=== PATIENT | male | born 1940 | race Caucasian/White ===

== ENCOUNTER 2019-05-02 14:15 | Inpatient (IN) | payer MEDICARE, OTHER ==
[~2019-05-02] VITALS: Ht 180.3 cm; Wt 93.8 kg
[2019-05-02 16:30] LABS: ABG BASE EXCESS -1.4 mmol/L (-2.0-3.0); ABG HCO3 23.8 mmol/L (22.0-26.0); ABG OXYGEN SATURATION 98.2 % (95-98); ABG PCO2 (T) 40.1 mmHg (35.0-45.0); ABG PH (T) 7.387 (7.350-7.450); ABG PO2 (T) 117.4 mmHg (83-108); FCOHb 0.3 % (0.5-1.5); FMetHb 0.2 % (0.3-1.12); FO2Hb 97.7 % (94-100); MINUTE VOLUME 6 L/min; PATIENT TEMPERATURE 35.9; PEEP 8 cm H2O; RESPIRATORY RATE 12 b/min; RESPIRATORY RATE (OBSERVED) 12 b/min; TIDAL VOLUME 500 mL; TOTAL HEMOGLOBIN 14.2 G/dl (14.0-17.9)
[2019-05-02] MEDS: normal saline 1000ml 1,000 ML IV SCH (16:32)
[2019-05-02] MEDS ORDERED: proCHLORperazine 10 MG/2 ml inj IV PRN (16:35)
[2019-05-02] MEDS ORDERED: acetaminophen 325mg tablet PO PRN (16:35)
[2019-05-02] MEDS ORDERED: CISatracurium **Bolus** 2 mg/ml inj IV PRN (16:35)
[2019-05-02] MEDS ORDERED: sodium phosphate inj. 30 MMOL in dextrose 5%-water 250 ML IV PRN (16:35)
[2019-05-02] MEDS ORDERED: Neutra Phos packet PO PRN (16:35)
[2019-05-02] MEDS ORDERED: magnesium Cl slow-release 64mg tablet PO PRN (16:35)
[2019-05-02] MEDS ORDERED: magnesium 2GM in 50ml NS 50 ML IV PRN (16:35)
[2019-05-02] MEDS ORDERED: magnesium hydroxide 30ml (MOM) UD suspension PO PRN (16:35)
[2019-05-02] MEDS ORDERED: bisacodyl 10mg suppository rectal RC PRN (16:35)
[2019-05-02] MEDS ORDERED: magnesium 4gm in 100ml NS 100 ML IV PRN (16:35)
[2019-05-02 17:37] LABS: BASOPHILS % (AUTO) 0.2 % (0-1); EOSINOPHILS % (AUTO) 0.1 % (0-6); HEMATOCRIT 40.8 % (42.0-52.0); HEMOGLOBIN 13.5 g/dl (14.0-17.9); LYMPHOCYTES # (AUTO) 1.2 X10'3 (1.1-4.8); LYMPHOCYTES % (AUTO) 12.3 % (21-51); MEAN CORPUSCULAR HEMOGLOBIN 31.7 PG (27.0-31.0); MEAN CORPUSCULAR HGB CONC 33.1 g/dL (33.0-36.5); MEAN CORPUSCULAR VOLUME 95.8 FL (78-98); MEAN PLATELET VOLUME 8.4 FL (7.4-10.4); MONOCYTES # (AUTO) 0.5 X10'3 (0-0.9); MONOCYTES % (AUTO) 4.6 % (2-12); NEUTROPHILS # (AUTO) 8.4 X10'3 (1.8-7.7); NEUTROPHILS % (AUTO) 82.8 % (42-75); PLATELET COUNT 144 X10'3 (140-440); RED BLOOD COUNT 4.26 X10'6 (4.70-6.10); RED CELL DISTRIBUTION WIDTH 15.3 % (11.5-14.5); WHITE BLOOD COUNT 10.2 X10'3 (4.5-11.0)
[2019-05-02 17:51] LABS: PARTIAL THROMBOPLASTIN TIME 30 SECONDS (22-32)
[2019-05-02 17:52] LABS: LACTIC SEPSIS 2.6 MMOL/L (0.4-2.0)
[2019-05-02 18:00] VITALS: BP 109/49
[2019-05-02 18:00] LABS: ALBUMIN 1.9 G/DL (3.4-5.0); ALBUMIN/GLOBULIN RATIO 0.6 (1.1-1.5); ALKALINE PHOSPHATASE 109 IU/L (46-116); AMYLASE 36 U/L (25-115); ANION GAP 10 (8-16); ASPARTATE AMINO TRANSFERASE 958 U/L (10-37); BILIRUBIN,TOTAL 1.3 MG/DL (0.1-1.0); BLOOD UREA NITROGEN 58 MG/DL (7-18); CHLORIDE 103 MMOL/L (99-107); CREATININE 2.32 MG/DL (0.60-1.10); GLUCOSE 142 MG/DL (70-104); LDL CHOLESTEROL 63 MG/DL (50-100); LIPASE 135 U/L (73-393); PHOSPHORUS 4.6 MG/DL (2.3-4.5); SODIUM 142 MMOL/L (135-145); TOTAL CARBON DIOXIDE 28.9 MMOL/L (24-32); TOTAL PROTEIN 5.2 G/DL (6.4-8.2); eGFR 27 ML/MIN
[2019-05-02 18:07] LABS: ALANINE AMINOTRANSFERASE 1534 U/L (12-78)
[2019-05-02] MEDS ORDERED: CISatracurium besylate inj. 100 MG in dextrose 5%-water 50ml 40 ML IV PRN (18:20)
--- NOTE | 2019-05-02 18:30 | NUR ---
Patient in room ICU 2039. I have received report from SHAWN Arriaga and had the opportunity to ask questions and assume patient care.
[2019-05-02] MEDS: docusate sod 100mg capsule PO SCH (18:35)
[2019-05-02 19:00] VITALS: BP 100/49
[2019-05-02] MEDS: mineral oil/petrolatum ophthal oint OP SCH (19:15)
[2019-05-02] MEDS: pantoprazole 40 MG vial IV SCH (19:15)
[2019-05-02] MEDS: midazolam 100mg in NS 100ml 100 ML IV PRN (19:16)
[2019-05-02] MEDS: heparin, porcine 5000 units/ml vial SQ SCH (19:16)
[2019-05-02 20:00] VITALS: BP 130/55
[2019-05-02] MEDS ORDERED: apixaban 2.5mg tablet PO SCH (20:00)
[2019-05-02] MEDS: amiodarone/D5 360MG/200ML BAG 200 ML IV SCH (20:49)
[2019-05-02] MEDS: NORepinephrine 8mg/ 250ml NS 250 ML IV SCH (20:50)
[2019-05-02 21:00] VITALS: BP 105/50
[2019-05-02 22:00] VITALS: BP 109/45
[2019-05-02 22:41] LABS: ANION GAP 12 (8-16); BLOOD UREA NITROGEN 56 MG/DL (7-18); BUN/CREATININE RATIO 27.5 (5.4-32.0); CALCIUM 8.2 MG/DL (8.5-10.1); CHLORIDE 106 MMOL/L (99-107); CREATININE 2.04 MG/DL (0.60-1.10); GLUCOSE 135 MG/DL (70-104); MAGNESIUM 1.9 MG/DL (1.5-2.4); POTASSIUM 4.1 MMOL/L (3.5-5.1); SODIUM 143 MMOL/L (135-145); TOTAL CARBON DIOXIDE 24.7 MMOL/L (24-32); eGFR 32 ML/MIN
[2019-05-02 23:00] VITALS: BP 127/52
[2019-05-03] VITALS (24 sets, daily range): BP systolic 91–146; BP diastolic 40–54
[2019-05-03] MEDS: normal saline 1000ml 1,000 ML IV SCH ×2 (00:13→15:43)
[2019-05-03] MEDS: mineral oil/petrolatum ophthal oint OP SCH ×6 (00:13→19:19)
[2019-05-03 00:56] LABS: ABG BASE EXCESS -0.8 mmol/L (-2.0-3.0); ABG HCO3 23.2 mmol/L (22.0-26.0); ABG OXYGEN SATURATION 98.8 % (95-98); ABG PCO2 (T) 30.7 mmHg (35.0-45.0); ABG PH (T) 7.479 (7.350-7.450); ABG PO2 (T) 127.3 mmHg (83-108); FCOHb 0.3 % (0.5-1.5); FMetHb 0.2 % (0.3-1.12); FO2Hb 98.3 % (94-100); MINUTE VOLUME 14 L/min; PEEP 5 cm H2O; RESPIRATORY RATE 12 b/min; RESPIRATORY RATE (OBSERVED) 25 b/min; TIDAL VOLUME 500 mL; TOTAL HEMOGLOBIN 14.2 G/dl (14.0-17.9)
[2019-05-03 01:54] LABS: ALANINE AMINOTRANSFERASE 1348 U/L (12-78); ALBUMIN 1.9 G/DL (3.4-5.0); ALBUMIN/GLOBULIN RATIO 0.6 (1.1-1.5); ALKALINE PHOSPHATASE 105 IU/L (46-116); ANION GAP 9 (8-16); ASPARTATE AMINO TRANSFERASE 659 U/L (10-37); BILIRUBIN,TOTAL 1.7 MG/DL (0.1-1.0); BLOOD UREA NITROGEN 56 MG/DL (7-18); BUN/CREATININE RATIO 28.7 (5.4-32.0); CALCIUM 8.1 MG/DL (8.5-10.1); CHLORIDE 107 MMOL/L (99-107); CKMB RELATIVE INDEX 3.3 RATIO (0-2.5); CREATINE KINASE 210 U/L (39-308); CREATININE 1.95 MG/DL (0.60-1.10); GLUCOSE 120 MG/DL (70-104); MAGNESIUM 1.9 MG/DL (1.5-2.4); PHOSPHORUS 4.6 MG/DL (2.3-4.5); SODIUM 142 MMOL/L (135-145); TOTAL CARBON DIOXIDE 26.1 MMOL/L (24-32); TOTAL PROTEIN 5.2 G/DL (6.4-8.2); TROPONIN I 0.28 NG/ML (0.0-0.05); eGFR 33 ML/MIN
[2019-05-03] MEDS: amiodarone/D5 360MG/200ML BAG 200 ML IV SCH ×3 (02:19→14:27)
[2019-05-03] MEDS: FENTANYL-0.9 % NACL/PF 100 ML IV PRN ×3 (04:55→17:53)
[2019-05-03 05:02] LABS: BASOPHILS % (AUTO) 0.2 % (0-1); EOSINOPHILS % (AUTO) 0.1 % (0-6); HEMATOCRIT 39.6 % (42.0-52.0); HEMOGLOBIN 13.2 g/dl (14.0-17.9); LYMPHOCYTES # (AUTO) 0.8 X10'3 (1.1-4.8); LYMPHOCYTES % (AUTO) 9.5 % (21-51); MEAN CORPUSCULAR HEMOGLOBIN 31.8 PG (27.0-31.0); MEAN CORPUSCULAR HGB CONC 33.4 g/dL (33.0-36.5); MEAN CORPUSCULAR VOLUME 95.2 FL (78-98); MEAN PLATELET VOLUME 8.2 FL (7.4-10.4); MONOCYTES # (AUTO) 0.4 X10'3 (0-0.9); MONOCYTES % (AUTO) 4.9 % (2-12); NEUTROPHILS # (AUTO) 7.4 X10'3 (1.8-7.7); NEUTROPHILS % (AUTO) 85.3 % (42-75); PLATELET COUNT 114 X10'3 (140-440); RED BLOOD COUNT 4.16 X10'6 (4.70-6.10); RED CELL DISTRIBUTION WIDTH 15.5 % (11.5-14.5); WHITE BLOOD COUNT 8.7 X10'3 (4.5-11.0)
[2019-05-03 05:16] LABS: ABG BASE EXCESS 0.2 mmol/L (-2.0-3.0); ABG HCO3 26.4 mmol/L (22.0-26.0); ABG OXYGEN SATURATION 97.3 % (95-98); ABG PH (T) 7.407 (7.350-7.450); ABG PO2 (T) 83.7 mmHg (83-108); FCOHb 0.3 % (0.5-1.5); FMetHb 0.1 % (0.3-1.12); FO2Hb 96.9 % (94-100); MINUTE VOLUME 7 L/min; PEEP 5 cm H2O; RESPIRATORY RATE 12 b/min; RESPIRATORY RATE (OBSERVED) 13 b/min; TIDAL VOLUME 500 mL; TOTAL HEMOGLOBIN 13.9 G/dl (14.0-17.9)
[2019-05-03 05:16] LABS: ALBUMIN 1.8 G/DL (3.4-5.0); ANION GAP 11 (8-16); BLOOD UREA NITROGEN 54 MG/DL (7-18); BUN/CREATININE RATIO 29.8 (5.4-32.0); CALCIUM 7.9 MG/DL (8.5-10.1); CHLORIDE 108 MMOL/L (99-107); CREATININE 1.81 MG/DL (0.60-1.10); GLUCOSE 115 MG/DL (70-104); MAGNESIUM 1.8 MG/DL (1.5-2.4); POTASSIUM 3.6 MMOL/L (3.5-5.1); SODIUM 144 MMOL/L (135-145); TOTAL CARBON DIOXIDE 25.1 MMOL/L (24-32); eGFR 36 ML/MIN
--- NOTE | 2019-05-03 05:57 | NUR ---
Problems reprioritized. Patient report given, questions answered & plan of care reviewed with day shift RN.
--- NOTE | 2019-05-03 06:20 | NUR ---
Patient in room ICU 2039. I have received report from SHAWN Mehta and had the opportunity to ask questions and assume patient care.
[2019-05-03] MEDS: pantoprazole 40 MG vial IV SCH (07:46)
[2019-05-03] MEDS: docusate sod 100mg capsule PO SCH ×2 (07:48→18:32)
[2019-05-03] MEDS: heparin, porcine 5000 units/ml vial SQ SCH (07:48)
[2019-05-03] MEDS: midazolam 100mg in NS 100ml 100 ML IV PRN ×3 (08:24→19:19)
[2019-05-03] MEDS ORDERED: levetiracetam inj 500 MG in normal saline 100ml IV soln 95 ML IV SCH (08:30)
--- NOTE | 2019-05-03 08:45 | NUR ---
MD Moise at bedside to assess patient. Current condition reviewed. Md notified of BIS monitor readings, concerns for inaccurate reading vs sedation problem vs seizure activity. Per MD, BIS does not appear to be reliable.
[2019-05-03 09:05] LABS: ALBUMIN 1.8 G/DL (3.4-5.0); ANION GAP 10 (8-16); BLOOD UREA NITROGEN 53 MG/DL (7-18); BUN/CREATININE RATIO 29.3 (5.4-32.0); CALCIUM 8.1 MG/DL (8.5-10.1); CHLORIDE 108 MMOL/L (99-107); CKMB RELATIVE INDEX 2.5 RATIO (0-2.5); CREATINE KINASE 330 U/L (39-308); CREATININE 1.81 MG/DL (0.60-1.10); GLUCOSE 115 MG/DL (70-104); MAGNESIUM 1.8 MG/DL (1.5-2.4); POTASSIUM 3.6 MMOL/L (3.5-5.1); SODIUM 144 MMOL/L (135-145); TOTAL CARBON DIOXIDE 25.6 MMOL/L (24-32); TROPONIN I 0.19 NG/ML (0.0-0.05); eGFR 36 ML/MIN
[2019-05-03] MEDS ORDERED: CISatracurium **Bolus** 2 mg/ml inj IV ONE (09:50)
[2019-05-03] MEDS: levoFLOXACIN-Levaquin 250mg/D5 50 ML IV SCH (09:55)
[2019-05-03] MEDS: cefepime 1GM in D5W 50mL 50 ML IV SCH (10:27)
[2019-05-03] MEDS ORDERED: RIVA20TA PO (12:04)
[2019-05-03] MEDS ORDERED: AMIO200T61 PO (12:04)
[2019-05-03] MEDS ORDERED: FURO20TA4 PO (12:04)
[2019-05-03] MEDS ORDERED: FLUT1BLS3 PO (12:04)
[2019-05-03] MEDS ORDERED: FLO0.4C PO (12:04)
[2019-05-03] MEDS ORDERED: DILT30TA5 PO (12:04)
[2019-05-03] MEDS ORDERED: METO-384 PO (12:04)
[2019-05-03] MEDS ORDERED: METF-438 PO (12:04)
--- NOTE | 2019-05-03 14:29 | NUR ---
Initial assessment (05/03): Pt was previously admitted to [facility] with acute CHF, pleural effusion in the left side, that required chest tube placement, and later developed right pleural effusion noted per MD. Pt is admitted to the unit with coded, GORGE and acute respiratory failure. According to physical hx, pt has a medical hx of Afib, CHF, CKD stage III, DM2, CVA, COPD, and smoker. Pt is sedated and intubated. On hypothermic protocol. RD noted Cristian 10, skin intact. As the critical condition, pt remains NPO. If prolongs intubation, will rec. EN. Will continue to monitor. Recommendations: 1.TF recs Vital High Protein at goal rate 80ml/hr;to provide 1920ml fluid, 1920kcal, 1613ml free water, 168g protein. Additional water flushes 200ml q4. 2.weekly wt 3.Bowel care routine 4.Rec. phos binder per MD due to elevated phos level Addendum: 05/03/19 at [address] Amended: Links added. Addendum: 05/03/19 at [address] RD agree with manager of internal audit note
[2019-05-03 14:50] LABS: ALBUMIN 1.6 G/DL (3.4-5.0); ANION GAP 9 (8-16); BLOOD UREA NITROGEN 51 MG/DL (7-18); BUN/CREATININE RATIO 31.5 (5.4-32.0); CALCIUM 8.1 MG/DL (8.5-10.1); CHLORIDE 107 MMOL/L (99-107); CREATININE 1.62 MG/DL (0.60-1.10); GLUCOSE 130 MG/DL (70-104); MAGNESIUM 1.8 MG/DL (1.5-2.4); PHOSPHORUS 3.3 MG/DL (2.3-4.5); POTASSIUM 3.2 MMOL/L (3.5-5.1); SODIUM 143 MMOL/L (135-145); TOTAL CARBON DIOXIDE 26.8 MMOL/L (24-32); eGFR 41 ML/MIN
[2019-05-03] MEDS: NORepinephrine 8mg/ 250ml NS 250 ML IV SCH (15:44)
--- NOTE | 2019-05-03 18:18 | NUR ---
Problems reprioritized. Patient report given, questions answered & plan of care reviewed with Janine Greer RN.
[2019-05-03] MEDS: mineral oil/petrolatum ophthal oint EACHEYE SCH ×2 (18:32→18:33)
[2019-05-03] MEDS: lactobacillus rhamnosus 10,000 MMU CELLS/CAPSULE PO SCH (18:33)
--- NOTE | 2019-05-03 18:34 | NUR ---
Patient in room ICU 2039. I have received report from SHAWN Arriaga and had the opportunity to ask questions and assume patient care.
[2019-05-03 18:44] LABS: CKMB RELATIVE INDEX 2.8 RATIO (0-2.5); TROPONIN I 0.11 NG/ML (0.0-0.05)
[2019-05-03] MEDS: furosemide 40mg/4ml inj IV SCH (19:18)
[2019-05-03 21:10] LABS: CLARITY,URINE CLEAR (Clear); COLOR,URINE YELLOW (Yellow); GLUCOSE, URINE NEGATIVE (Neg); KETONES,URINE NEGATIVE (Neg); LEUKOCYTE ESTERASE ,URINE TRACE (Neg); NITRITES, URINE NEGATIVE (Neg); OCCULT BLOOD,URINE MODERATE (Neg); PROTEIN,URINE NEGATIVE (Neg)
[2019-05-03 21:12] LABS: UA COLLECTION TYPE NON-SPECIFIED
[2019-05-03 21:16] LABS: BACTERIA,URINE NONE SEEN /HPF (Neg); MUCUS STRANDS NONE SEEN /LPF (Neg); SQUAMOUS EPITHELIAL CELL,UR FEW /LPF (FEW); WBC,URINE 0-4 /HPF (0-4)
[2019-05-03 21:24] LABS: ALBUMIN 1.7 G/DL (3.4-5.0); ANION GAP 10 (8-16); BLOOD UREA NITROGEN 47 MG/DL (7-18); BUN/CREATININE RATIO 28.7 (5.4-32.0); CALCIUM 8.1 MG/DL (8.5-10.1); CHLORIDE 110 MMOL/L (99-107); CREATININE 1.64 MG/DL (0.60-1.10); GLUCOSE 119 MG/DL (70-104); MAGNESIUM 1.7 MG/DL (1.5-2.4); PHOSPHORUS 3.5 MG/DL (2.3-4.5); POTASSIUM 3.5 MMOL/L (3.5-5.1); SODIUM 146 MMOL/L (135-145); TOTAL CARBON DIOXIDE 26.4 MMOL/L (24-32); eGFR 41 ML/MIN
[2019-05-03 23:20] LABS: ABG BASE EXCESS 1.4 mmol/L (-2.0-3.0); ABG HCO3 24.8 mmol/L (22.0-26.0); ABG OXYGEN SATURATION 98.2 % (95-98); ABG PH (T) 7.467 (7.350-7.450); ABG PO2 (T) 128.1 mmHg (83-108); FCOHb 0.3 % (0.5-1.5); FMetHb 0.2 % (0.3-1.12); FO2Hb 97.7 % (94-100); MINUTE VOLUME 8 L/min; PATIENT TEMPERATURE 36.8; PEEP 5 cm H2O; RESPIRATORY RATE 12 b/min; RESPIRATORY RATE (OBSERVED) 15 b/min; TIDAL VOLUME 500 mL; TOTAL HEMOGLOBIN 13.7 G/dl (14.0-17.9)
[2019-05-04] VITALS (24 sets, daily range): BP systolic 100–135; BP diastolic 42–55
[2019-05-04] MEDS: mineral oil/petrolatum ophthal oint OP SCH ×3 (00:07→08:00)
[2019-05-04] MEDS: FENTANYL-0.9 % NACL/PF 100 ML IV PRN ×2 (01:13→17:59)
[2019-05-04 03:42] LABS: BASOPHILS % (AUTO) 0.2 % (0-1); EOSINOPHILS % (AUTO) 0.4 % (0-6); HEMATOCRIT 39.9 % (42.0-52.0); HEMOGLOBIN 13.2 g/dl (14.0-17.9); LYMPHOCYTES # (AUTO) 0.6 X10'3 (1.1-4.8); LYMPHOCYTES % (AUTO) 9.8 % (21-51); MEAN CORPUSCULAR HEMOGLOBIN 31.8 PG (27.0-31.0); MEAN CORPUSCULAR VOLUME 96.3 FL (78-98); MEAN PLATELET VOLUME 8.4 FL (7.4-10.4); MONOCYTES # (AUTO) 0.3 X10'3 (0-0.9); MONOCYTES % (AUTO) 4.4 % (2-12); NEUTROPHILS # (AUTO) 5.5 X10'3 (1.8-7.7); NEUTROPHILS % (AUTO) 85.2 % (42-75); PLATELET COUNT 106 X10'3 (140-440); RED BLOOD COUNT 4.14 X10'6 (4.70-6.10); RED CELL DISTRIBUTION WIDTH 15.5 % (11.5-14.5); WHITE BLOOD COUNT 6.5 X10'3 (4.5-11.0)
[2019-05-04 04:06] LABS: ABG BASE EXCESS 2.5 mmol/L (-2.0-3.0); ABG OXYGEN SATURATION 97.2 % (95-98); ABG PCO2 (T) 32.3 mmHg (35.0-45.0); ABG PH (T) 7.506 (7.350-7.450); ABG PO2 (T) 89.6 mmHg (83-108); FCOHb 0.6 % (0.5-1.5); FMetHb 0.2 % (0.3-1.12); FO2Hb 96.4 % (94-100); MINUTE VOLUME 13 L/min; PATIENT TEMPERATURE 36.8; PEEP 5 cm H2O; RESPIRATORY RATE 10 b/min; RESPIRATORY RATE (OBSERVED) 24 b/min; TIDAL VOLUME 500 mL; TOTAL HEMOGLOBIN 14.1 G/dl (14.0-17.9)
[2019-05-04 04:16] LABS: ALANINE AMINOTRANSFERASE 915 U/L (12-78); ALBUMIN 1.7 G/DL (3.4-5.0); ALBUMIN/GLOBULIN RATIO 0.5 (1.1-1.5); ALKALINE PHOSPHATASE 96 IU/L (46-116); ANION GAP 11 (8-16); ASPARTATE AMINO TRANSFERASE 309 U/L (10-37); BILIRUBIN,TOTAL 1.6 MG/DL (0.1-1.0); BLOOD UREA NITROGEN 45 MG/DL (7-18); BUN/CREATININE RATIO 29.4 (5.4-32.0); CALCIUM 8.2 MG/DL (8.5-10.1); CHLORIDE 110 MMOL/L (99-107); CKMB RELATIVE INDEX 3.6 RATIO (0-2.5); CREATINE KINASE 265 U/L (39-308); CREATININE 1.53 MG/DL (0.60-1.10); GLUCOSE 114 MG/DL (70-104); MAGNESIUM 1.7 MG/DL (1.5-2.4); PHOSPHORUS 3.5 MG/DL (2.3-4.5); POTASSIUM 3.4 MMOL/L (3.5-5.1); SODIUM 148 MMOL/L (135-145); TOTAL CARBON DIOXIDE 26.6 MMOL/L (24-32); TOTAL PROTEIN 4.9 G/DL (6.4-8.2); TROPONIN I 0.14 NG/ML (0.0-0.05); eGFR 44 ML/MIN
[2019-05-04] MEDS: midazolam 100mg in NS 100ml 100 ML IV PRN ×2 (05:50→17:59)
--- NOTE | 2019-05-04 06:50 | NUR ---
Problems reprioritized. Patient report given, questions answered & plan of care reviewed with SHAWN Johnson.
[2019-05-04] MEDS: docusate sod 100mg capsule PO SCH ×2 (08:00→20:00)
[2019-05-04] MEDS: lactobacillus rhamnosus 10,000 MMU CELLS/CAPSULE PO SCH ×2 (08:00→20:00)
[2019-05-04] MEDS ORDERED: enoxaparin 100mg/ml syringe SUBCUT SCH (08:00)
[2019-05-04 08:58] LABS: ALBUMIN 1.7 G/DL (3.4-5.0); ANION GAP 10 (8-16); BLOOD UREA NITROGEN 47 MG/DL (7-18); BUN/CREATININE RATIO 30.3 (5.4-32.0); CHLORIDE 112 MMOL/L (99-107); CREATINE KINASE 200 U/L (39-308); CREATININE 1.55 MG/DL (0.60-1.10); GLUCOSE 116 MG/DL (70-104); MAGNESIUM 1.6 MG/DL (1.5-2.4); PHOSPHORUS 3.4 MG/DL (2.3-4.5); POTASSIUM 3.5 MMOL/L (3.5-5.1); SODIUM 148 MMOL/L (135-145); TOTAL CARBON DIOXIDE 25.6 MMOL/L (24-32); TROPONIN I 0.15 NG/ML (0.0-0.05); eGFR 43 ML/MIN
[2019-05-04] MEDS: levoFLOXACIN-Levaquin 250mg/D5 50 ML IV SCH (09:36)
[2019-05-04] MEDS: cefepime 1GM in D5W 50mL 50 ML IV SCH (09:36)
[2019-05-04] MEDS: furosemide 40mg/4ml inj IV SCH ×2 (09:37→21:02)
[2019-05-04] MEDS: pantoprazole 40 MG vial IV SCH (09:37)
[2019-05-04] MEDS: mineral oil/petrolatum ophthal oint EACHEYE SCH ×3 (09:38→21:09)
[2019-05-04 11:41] LABS: ABG BASE EXCESS -0.5 mmol/L (-2.0-3.0); ABG OXYGEN SATURATION 95.7 % (95-98); ABG PCO2 (T) 29.6 mmHg (35.0-45.0); ABG PH (T) 7.487 (7.350-7.450); ABG PO2 (T) 75.8 mmHg (83-108); FCOHb 0.5 % (0.5-1.5); FMetHb 0.2 % (0.3-1.12); MINUTE VOLUME 10 L/min; PATIENT TEMPERATURE 36.5; PEEP 5 cm H2O; RESPIRATORY RATE 10 b/min; TIDAL VOLUME 500 mL; TOTAL HEMOGLOBIN 13.8 G/dl (14.0-17.9)
[2019-05-04 15:07] LABS: ALBUMIN 1.7 G/DL (3.4-5.0); ANION GAP 11 (8-16); BLOOD UREA NITROGEN 45 MG/DL (7-18); BUN/CREATININE RATIO 29.4 (5.4-32.0); CHLORIDE 110 MMOL/L (99-107); CREATININE 1.53 MG/DL (0.60-1.10); GLUCOSE 123 MG/DL (70-104); MAGNESIUM 1.5 MG/DL (1.5-2.4); POTASSIUM 3.4 MMOL/L (3.5-5.1); SODIUM 146 MMOL/L (135-145); TOTAL CARBON DIOXIDE 25.1 MMOL/L (24-32); eGFR 44 ML/MIN
[2019-05-04 16:20] LABS: ABG BASE EXCESS 2.5 mmol/L (-2.0-3.0); ABG HCO3 22.7 mmol/L (22.0-26.0); ABG OXYGEN SATURATION 96.5 % (95-98); ABG PCO2 (T) 24.1 mmHg (35.0-45.0); ABG PH (T) 7.592 (7.350-7.450); ABG PO2 (T) 78.2 mmHg (83-108); FCOHb 0.2 % (0.5-1.5); FMetHb 0.3 % (0.3-1.12); MINUTE VOLUME 8 L/min; PATIENT TEMPERATURE 36.8; PEEP 5 cm H2O; RESPIRATORY RATE 10 b/min; TIDAL VOLUME 500 mL; TOTAL HEMOGLOBIN 13.6 G/dl (14.0-17.9)
[2019-05-04] MEDS ORDERED: CISatracurium **Bolus** 2 mg/ml inj IV ONE (16:45)
--- NOTE | 2019-05-04 18:28 | NUR ---
Problems reprioritized. Patient report given, questions answered & plan of care reviewed with Natali ESCOBAR.
[2019-05-04] MEDS: albuterol 2.5 MG/3 ML nebule NEB SCH (19:14)
[2019-05-04] MEDS: budesonide 0.5mg/2ml UD nebule IH SCH (19:14)
[2019-05-04] MEDS: potassium Cl 20mEq/100mL bag 100 ML IV PRN ×4 (19:37→23:21)
--- NOTE | 2019-05-04 19:39 | NUR ---
balbir lechuga sent home w/daughter.
[2019-05-04] MEDS ORDERED: FLU VACC QS 2019-20 (6 MOS UP) 60 MCG/0.5 ML VIAL IMVAC ONE (20:00)
--- NOTE | 2019-05-04 21:00 | NUR ---
Unable to weight patient. Bed scale reads incorrectly without a weight history, reading -35Kg. Unable to weight patient.
[2019-05-04] MEDS: NORepinephrine 8mg/ 250ml NS 250 ML IV SCH (21:11)
[2019-05-04 22:40] LABS: ABG BASE EXCESS -0.6 mmol/L (-2.0-3.0); ABG HCO3 23.1 mmol/L (22.0-26.0); ABG OXYGEN SATURATION 96.8 % (95-98); ABG PCO2 (T) 34.6 mmHg (35.0-45.0); ABG PH (T) 7.441 (7.350-7.450); FCOHb 0.5 % (0.5-1.5); FMetHb 0.2 % (0.3-1.12); FO2Hb 96.1 % (94-100); MINUTE VOLUME 14 L/min; PATIENT TEMPERATURE 36.6; PEEP 5 cm H2O; RESPIRATORY RATE 12 b/min; RESPIRATORY RATE (OBSERVED) 26 b/min; TIDAL VOLUME 500 mL; TOTAL HEMOGLOBIN 13.5 G/dl (14.0-17.9)
[2019-05-05] VITALS (32 sets, daily range): BP systolic 96–147; BP diastolic 39–57
[2019-05-05] MEDS: FENTANYL-0.9 % NACL/PF 100 ML IV PRN ×3 (00:11→12:38)
[2019-05-05] MEDS: mineral oil/petrolatum ophthal oint EACHEYE SCH ×4 (02:00→20:29)
[2019-05-05 02:27] LABS: BASOPHILS % (AUTO) 0.1 % (0-1); EOSINOPHILS % (AUTO) 0.2 % (0-6); HEMATOCRIT 37.3 % (42.0-52.0); HEMOGLOBIN 12.7 g/dl (14.0-17.9); LYMPHOCYTES # (AUTO) 0.8 X10'3 (1.1-4.8); LYMPHOCYTES % (AUTO) 9.8 % (21-51); MEAN CORPUSCULAR HEMOGLOBIN 32.2 PG (27.0-31.0); MEAN CORPUSCULAR HGB CONC 33.9 g/dL (33.0-36.5); MEAN PLATELET VOLUME 8.2 FL (7.4-10.4); MONOCYTES # (AUTO) 0.5 X10'3 (0-0.9); MONOCYTES % (AUTO) 6.7 % (2-12); NEUTROPHILS # (AUTO) 6.8 X10'3 (1.8-7.7); NEUTROPHILS % (AUTO) 83.2 % (42-75); PLATELET COUNT 111 X10'3 (140-440); RED BLOOD COUNT 3.93 X10'6 (4.70-6.10); RED CELL DISTRIBUTION WIDTH 15.8 % (11.5-14.5); WHITE BLOOD COUNT 8.2 X10'3 (4.5-11.0)
[2019-05-05 02:40] LABS: ALANINE AMINOTRANSFERASE 665 U/L (12-78); ALBUMIN 1.7 G/DL (3.4-5.0); ALBUMIN/GLOBULIN RATIO 0.5 (1.1-1.5); ALKALINE PHOSPHATASE 91 IU/L (46-116); ANION GAP 12 (8-16); ASPARTATE AMINO TRANSFERASE 179 U/L (10-37); BILIRUBIN,TOTAL 1.5 MG/DL (0.1-1.0); BLOOD UREA NITROGEN 44 MG/DL (7-18); BUN/CREATININE RATIO 27.5 (5.4-32.0); CALCIUM 8.2 MG/DL (8.5-10.1); CHLORIDE 111 MMOL/L (99-107); GLUCOSE 139 MG/DL (70-104); MAGNESIUM 1.5 MG/DL (1.5-2.4); PHOSPHORUS 2.9 MG/DL (2.3-4.5); POTASSIUM 4.1 MMOL/L (3.5-5.1); SODIUM 147 MMOL/L (135-145); TOTAL CARBON DIOXIDE 24.3 MMOL/L (24-32); eGFR 42 ML/MIN
[2019-05-05 03:30] LABS: ABG BASE EXCESS 2.5 mmol/L (-2.0-3.0); ABG HCO3 26.4 mmol/L (22.0-26.0); ABG OXYGEN SATURATION 95.8 % (95-98); ABG PCO2 (T) 37.7 mmHg (35.0-45.0); ABG PH (T) 7.462 (7.350-7.450); ABG PO2 (T) 83.7 mmHg (83-108); FMetHb 0.1 % (0.3-1.12); FO2Hb 95.7 % (94-100); MINUTE VOLUME 7 L/min; PATIENT TEMPERATURE 36.8; PEEP 5 cm H2O; RESPIRATORY RATE 12 b/min; RESPIRATORY RATE (OBSERVED) 12 b/min; TIDAL VOLUME 500 mL; TOTAL HEMOGLOBIN 12.9 G/dl (14.0-17.9)
[2019-05-05] MEDS: midazolam 100mg in NS 100ml 100 ML IV PRN ×2 (06:21→18:14)
--- NOTE | 2019-05-05 06:27 | NUR ---
Problems reprioritized. Patient report given, questions answered & plan of care reviewed with Alex ESCOBAR.
[2019-05-05] MEDS: budesonide 0.5mg/2ml UD nebule IH SCH ×2 (07:17→19:03)
[2019-05-05] MEDS: albuterol 2.5 MG/3 ML nebule NEB SCH ×4 (07:17→19:03)
[2019-05-05] MEDS: amiodarone 200mg tablet PO SCH (08:00)
[2019-05-05] MEDS: lactobacillus rhamnosus 10,000 MMU CELLS/CAPSULE PO SCH ×2 (08:00→20:29)
[2019-05-05] MEDS: docusate sod 100mg capsule PO SCH ×2 (08:00→20:00)
[2019-05-05] MEDS: cefepime 1GM in D5W 50mL 50 ML IV SCH (08:02)
[2019-05-05] MEDS: levoFLOXACIN-Levaquin 250mg/D5 50 ML IV SCH (08:02)
[2019-05-05] MEDS: pantoprazole 40 MG vial IV SCH (08:03)
[2019-05-05] MEDS: furosemide 40mg/4ml inj IV SCH ×2 (08:03→20:29)
[2019-05-05] MEDS: enoxaparin 30mg/0.3ml syringe SUBCUT SCH (08:03)
[2019-05-05] MEDS: enoxaparin 80mg/0.8ml syringe SUBCUT SCH (08:03)
[2019-05-05 09:45] LABS: ABG BASE EXCESS 2.4 mmol/L (-2.0-3.0); ABG HCO3 26.9 mmol/L (22.0-26.0); ABG OXYGEN SATURATION 95.1 % (95-98); ABG PCO2 (T) 40.9 mmHg (35.0-45.0); ABG PH (T) 7.434 (7.350-7.450); FCOHb 0.3 % (0.5-1.5); FMetHb 0.3 % (0.3-1.12); FO2Hb 94.5 % (94-100); MINUTE VOLUME 7 L/min; PATIENT TEMPERATURE 36.8; PEEP 5 cm H2O; RESPIRATORY RATE 12 b/min; RESPIRATORY RATE (OBSERVED) 12 b/min; TIDAL VOLUME 500 mL; TOTAL HEMOGLOBIN 12.8 G/dl (14.0-17.9)
--- NOTE | 2019-05-05 12:22 | NUR ---
TF consult (05/05): Pt is overbreathing through the ventilator per bedside RN. EEG showed severe generalized dysfunction. Pt is rewarmed, per MD wants to start TF today. TF recs.below with Vital High Protein at goal rate of 80ml/hr. Will continue to monitor. Recommendations: 1.Continuous TF using Vital High Protein at goal rate 80ml/hr;to provide 1920ml fluid,1920kcal, 1613ml free water, 168g protein. 2.Additional water flushes 200ml Q4H due to elevated Na level. 3.daily wt;prealbumin qM/Th 4.Bowel care routine Addendum: 05/05/19 at [address] Amended: Links added. Addendum: 05/05/19 at [address] I have reviewed and agree with note by Buttonhole Facer. Saranya Stephen RD
--- NOTE | 2019-05-05 14:46 | NUR ---
Tube feeding started
[2019-05-05 16:35] LABS: ABG HCO3 26.4 mmol/L (22.0-26.0); ABG OXYGEN SATURATION 95.9 % (95-98); ABG PCO2 (T) 35.4 mmHg (35.0-45.0); ABG PH (T) 7.488 (7.350-7.450); ABG PO2 (T) 79.4 mmHg (83-108); FCOHb 0.2 % (0.5-1.5); FMetHb 0.1 % (0.3-1.12); FO2Hb 95.6 % (94-100); MINUTE VOLUME 8 L/min; PATIENT TEMPERATURE 36.5; PEEP 5 cm H2O; RESPIRATORY RATE 12 b/min; TIDAL VOLUME 500 mL; TOTAL HEMOGLOBIN 12.8 G/dl (14.0-17.9)
--- NOTE | 2019-05-05 18:30 | NUR ---
Patient in room ICU 2039. I have received report from Alex ESCOBAR and had the opportunity to ask questions and assume patient care. Pt orally intubated #8.0 ETT @ 23cm gum. ETT secure with anchorfast. PT is on ventilator AC/VC mode FIO2 25% TV 500 Rate 12 +5 PEEP, observed TV 626. Left upper lateral chest tube is secure & connected to Pleur-Evac drainage system with 20cm suction. Chest tube drains serous fluid. Rhythm is AFib HR 118-120. Right IJ quad lumen central line is transduced to CVP. Levophed infusing at 6mcg/min. Right femoral arterial line is sutured in place with occlusive dressing, no bleeding/hematoma. Pedal pulses with Doppler only. Capillary refill is brisk to all nail beds.Pt is on Arctic Sun in normothermia mode with core temp 36.7. OGT is taped securely to ETT @ 61cm gum line. Enteric feedings of Vital HP running at 20ml/hr. HOB is elevated 30 degrees. Safety precautions present. Bilateral soft wrist restraints secure. No distress at shift change.
--- NOTE | 2019-05-05 20:17 | NUR ---
I have reviewed and agree with all medications administered and interventions performed by GROUND SUPPORT EQUIPMENT ASSEMBLER Student Navdeep Watson.
--- NOTE | 2019-05-05 21:00 | NUR ---
Bed scale not weighing correctly. No weight history, scale reads -35kg. Unable to weigh pt.
[2019-05-06] VITALS (28 sets, daily range): BP systolic 100–144; BP diastolic 42–62
[2019-05-06] MEDS: mineral oil/petrolatum ophthal oint EACHEYE SCH ×4 (01:38→20:45)
[2019-05-06 02:23] LABS: BASOPHILS % (AUTO) 0.3 % (0-1); EOSINOPHILS % (AUTO) 0.5 % (0-6); HEMATOCRIT 33.6 % (42.0-52.0); HEMOGLOBIN 11.2 g/dl (14.0-17.9); LYMPHOCYTES # (AUTO) 0.9 X10'3 (1.1-4.8); LYMPHOCYTES % (AUTO) 11.9 % (21-51); MEAN CORPUSCULAR HEMOGLOBIN 32.2 PG (27.0-31.0); MEAN CORPUSCULAR HGB CONC 33.3 g/dL (33.0-36.5); MEAN CORPUSCULAR VOLUME 96.7 FL (78-98); MEAN PLATELET VOLUME 7.8 FL (7.4-10.4); MONOCYTES # (AUTO) 0.6 X10'3 (0-0.9); MONOCYTES % (AUTO) 7.9 % (2-12); NEUTROPHILS # (AUTO) 5.8 X10'3 (1.8-7.7); NEUTROPHILS % (AUTO) 79.4 % (42-75); PLATELET COUNT 90 X10'3 (140-440); RED BLOOD COUNT 3.47 X10'6 (4.70-6.10); RED CELL DISTRIBUTION WIDTH 15.9 % (11.5-14.5); WHITE BLOOD COUNT 7.3 X10'3 (4.5-11.0)
[2019-05-06 03:00] LABS: ALANINE AMINOTRANSFERASE 440 U/L (12-78); ALBUMIN 1.6 G/DL (3.4-5.0); ALBUMIN/GLOBULIN RATIO 0.5 (1.1-1.5); ALKALINE PHOSPHATASE 80 IU/L (46-116); ANION GAP 4 (8-16); ASPARTATE AMINO TRANSFERASE 90 U/L (10-37); BILIRUBIN,TOTAL 1.1 MG/DL (0.1-1.0); BLOOD UREA NITROGEN 37 MG/DL (7-18); BUN/CREATININE RATIO 23.9 (5.4-32.0); CALCIUM 7.8 MG/DL (8.5-10.1); CHLORIDE 112 MMOL/L (99-107); CREATININE 1.55 MG/DL (0.60-1.10); GLUCOSE 181 MG/DL (70-104); MAGNESIUM 1.5 MG/DL (1.5-2.4); POTASSIUM 3.6 MMOL/L (3.5-5.1); SODIUM 146 MMOL/L (135-145); TOTAL CARBON DIOXIDE 30.2 MMOL/L (24-32); TOTAL PROTEIN 4.6 G/DL (6.4-8.2); eGFR 43 ML/MIN
[2019-05-06 03:06] LABS: ABG BASE EXCESS 4.4 mmol/L (-2.0-3.0); ABG HCO3 28.7 mmol/L (22.0-26.0); ABG PCO2 (T) 41.4 mmHg (35.0-45.0); ABG PH (T) 7.459 (7.350-7.450); ABG PO2 (T) 73.9 mmHg (83-108); FCOHb 0.4 % (0.5-1.5); FMetHb 0.2 % (0.3-1.12); FO2Hb 94.4 % (94-100); MINUTE VOLUME 7 L/min; PATIENT TEMPERATURE 36.7; PEEP 5 cm H2O; RESPIRATORY RATE 12 b/min; RESPIRATORY RATE (OBSERVED) 12 b/min; TIDAL VOLUME 500 mL; TOTAL HEMOGLOBIN 12.1 G/dl (14.0-17.9)
--- NOTE | 2019-05-06 05:00 | NUR ---
CHG bath rendered. Linen & gown changed. EKG electrode patches changed. Left ear lobe noted with dark area when pulse oximeter probe changed. Arms weep clear fluid. Left lower extremity with open area, tissue is red & weeping clear fluid. Right lower extremity with open weeping area, clear fluid.Foam dressing changed to sacrum surrounding area is reddened.
--- NOTE | 2019-05-06 06:21 | NUR ---
Problems reprioritized. Patient report given, questions answered & plan of care reviewed with Alex ESCOBAR.
--- NOTE | 2019-05-06 06:30 | NUR ---
Patient in room ICU 2039. I have received report from Natali ESCOBAR and had the opportunity to ask questions and assume patient care.
[2019-05-06] MEDS: albuterol 2.5 MG/3 ML nebule NEB SCH ×4 (08:00→19:22)
[2019-05-06] MEDS: budesonide 0.5mg/2ml UD nebule IH SCH ×2 (08:00→19:22)
[2019-05-06] MEDS: docusate sod 100mg capsule PO SCH ×2 (08:00→20:00)
[2019-05-06] MEDS: lactobacillus rhamnosus 10,000 MMU CELLS/CAPSULE PO SCH ×2 (08:06→20:55)
[2019-05-06] MEDS: cefepime 1GM in D5W 50mL 50 ML IV SCH (08:07)
[2019-05-06] MEDS: amiodarone 200mg tablet PO SCH (08:07)
[2019-05-06] MEDS: furosemide 40mg/4ml inj IV SCH ×2 (08:07→20:55)
[2019-05-06] MEDS: levoFLOXACIN-Levaquin 250mg/D5 50 ML IV SCH (08:07)
[2019-05-06] MEDS: pantoprazole 40 MG vial IV SCH (08:07)
[2019-05-06] MEDS: enoxaparin 30mg/0.3ml syringe SUBCUT SCH (08:08)
[2019-05-06] MEDS: enoxaparin 80mg/0.8ml syringe SUBCUT SCH (08:08)
[2019-05-06] MEDS: ipratropium/albuterol 3ml nebule NEB PRN (10:55)
[2019-05-06 11:21] LABS: ABG HCO3 29.9 mmol/L (22.0-26.0); ABG OXYGEN SATURATION 96.1 % (95-98); ABG PCO2 (T) 44.5 mmHg (35.0-45.0); ABG PH (T) 7.443 (7.350-7.450); ABG PO2 (T) 84.4 mmHg (83-108); FCOHb 0.2 % (0.5-1.5); FMetHb 0.2 % (0.3-1.12); FO2Hb 95.7 % (94-100); MINUTE VOLUME 6 L/min; PATIENT TEMPERATURE 36.7; PEEP 5 cm H2O; RESPIRATORY RATE 12 b/min; RESPIRATORY RATE (OBSERVED) 12 b/min; TIDAL VOLUME 500 mL; TOTAL HEMOGLOBIN 11.9 G/dl (14.0-17.9)
[2019-05-06] MEDS ORDERED: albumin (human) 25% 100 ML IV solution IV ONE (15:20)
[2019-05-06] MEDS ORDERED: WATER IV SCH (16:00)
[2019-05-06] MEDS: albumin (human) 25% 100ml IV 100 ML IV SCH (16:00)
[2019-05-06] MEDS ORDERED: DEXTROSE 5% IV SCH (16:00)
[2019-05-06] MEDS ORDERED: MAGNESIUM IV SCH (16:00)
[2019-05-06] MEDS ORDERED: POTASSIUM CL IV SCH (16:00)
[2019-05-06] MEDS: MAGNESIUM IV SCH (16:08)
[2019-05-06] MEDS: WATER IV SCH (16:08)
[2019-05-06] MEDS: POTASSIUM CL IV SCH (16:08)
[2019-05-06] MEDS: DEXTROSE 5% IV SCH (16:08)
--- NOTE | 2019-05-06 18:44 | NUR ---
Patient in room ICU 2039. I have received report from Alex ESCOBAR and had the opportunity to ask questions and assume patient care. Pt. Remains on ventilator mode AC/VC FIO2 25% TV 500 Rate 12 +5 PEEP. Observed RR 12, Observed TV 575 O2 saturation 97%. ETT is secure with anchorfast. Rhythm is Afib HR 97. Right IJ quad lumen central line with Levophed @ 2mcg/min. Line is transduced to CVP. Right femoral arterial line is sutured in place with occlusive dressing intact, no hematoma noted. Capillary refill is brisk to all nail beds. Edema is generalized 3-4+ pitting. Bilateral lower extremities with kerlix dressings intact. Pt remains on Artic Sun vest with normothermia settings. Core temp 36.8. Primary IVF D5+ KCl & Magnesium infusing at 75ml/hr. OGT is taped securely to ETT @61cm gum line.Vital HP tube feedings at goal rate 80ml/hr.
--- NOTE | 2019-05-06 18:56 | NUR ---
Problems reprioritized. Patient report given, questions answered & plan of care reviewed with Natali ESCOBAR.
--- NOTE | 2019-05-06 21:13 | NUR ---
Pt has met hyperglycemic protocol BS 194. Lindsay Anthony notified & orders received.
[2019-05-06] MEDS ORDERED: MESSAGE TO PHARMACY PO ONE (21:15)
[2019-05-06] MEDS ORDERED: glucagon, human recombinant 1mg kit SUBCUT PRN (21:15)
[2019-05-06] MEDS ORDERED: dextrose ORAL solution 15 GM/59 ML bottle PO PRN ×2 (21:15)
[2019-05-06] MEDS ORDERED: dextrose 50%-water 50ml dispensing syringe IV PRN ×2 (21:15)
[2019-05-06] MEDS: insulin glargine (Lantus) pen - multi-dose SQ SCH (22:09)
[2019-05-06] MEDS: insulin regular, human vial - multi-dose SQ SCH (22:16)
[2019-05-06] MEDS: NORepinephrine 8mg/ 250ml NS 250 ML IV SCH (23:00)
[2019-05-07] VITALS (25 sets, daily range): BP systolic 92–151; BP diastolic 44–68
[2019-05-07] MEDS: albumin (human) 25% 100ml IV 100 ML IV SCH ×3 (00:54→16:05)
[2019-05-07] MEDS: mineral oil/petrolatum ophthal oint EACHEYE SCH ×4 (01:29→20:52)
[2019-05-07] MEDS: insulin regular, human vial - multi-dose SQ SCH ×4 (01:37→20:47)
[2019-05-07 01:47] LABS: ALANINE AMINOTRANSFERASE 264 U/L (12-78); ALBUMIN 2.8 G/DL (3.4-5.0); ALBUMIN/GLOBULIN RATIO 1.1 (1.1-1.5); ALKALINE PHOSPHATASE 63 IU/L (46-116); ANION GAP 5 (8-16); ASPARTATE AMINO TRANSFERASE 43 U/L (10-37); BILIRUBIN,TOTAL 1.1 MG/DL (0.1-1.0); BLOOD UREA NITROGEN 38 MG/DL (7-18); BUN/CREATININE RATIO 30.2 (5.4-32.0); CALCIUM 7.9 MG/DL (8.5-10.1); CHLORIDE 110 MMOL/L (99-107); CREATININE 1.26 MG/DL (0.60-1.10); GLUCOSE 211 MG/DL (70-104); MAGNESIUM 1.6 MG/DL (1.5-2.4); PHOSPHORUS 2.2 MG/DL (2.3-4.5); POTASSIUM 3.4 MMOL/L (3.5-5.1); SODIUM 146 MMOL/L (135-145); TOTAL CARBON DIOXIDE 31.3 MMOL/L (24-32); TOTAL PROTEIN 5.4 G/DL (6.4-8.2); eGFR 55 ML/MIN
[2019-05-07 01:48] LABS: BASOPHILS # (AUTO) 0.1 X10'3 (0-0.2); BASOPHILS % (AUTO) 1.6 % (0-1); EOSINOPHILS # (AUTO) 0.1 X10'3 (0-0.9); EOSINOPHILS % (AUTO) 1.9 % (0-6); HEMATOCRIT 28.2 % (42.0-52.0); HEMOGLOBIN 9.4 g/dl (14.0-17.9); LYMPHOCYTES # (AUTO) 0.5 X10'3 (1.1-4.8); LYMPHOCYTES % (AUTO) 9.3 % (21-51); MEAN CORPUSCULAR HEMOGLOBIN 32.2 PG (27.0-31.0); MEAN CORPUSCULAR HGB CONC 33.3 g/dL (33.0-36.5); MEAN CORPUSCULAR VOLUME 96.7 FL (78-98); MONOCYTES # (AUTO) 0.4 X10'3 (0-0.9); MONOCYTES % (AUTO) 7.9 % (2-12); NEUTROPHILS # (AUTO) 4.2 X10'3 (1.8-7.7); NEUTROPHILS % (AUTO) 79.3 % (42-75); PLATELET COUNT 65 X10'3 (140-440); RED BLOOD COUNT 2.92 X10'6 (4.70-6.10); RED CELL DISTRIBUTION WIDTH 16.2 % (11.5-14.5); WHITE BLOOD COUNT 5.3 X10'3 (4.5-11.0)
--- NOTE | 2019-05-07 02:28 | NUR ---
Abnormal labs called to Lindsay Anthony. H/H , Platelets trending down. Order received to recheck hemogram in AM.
[2019-05-07 03:31] LABS: ABG BASE EXCESS 5.3 mmol/L (-2.0-3.0); ABG OXYGEN SATURATION 96.8 % (95-98); ABG PCO2 (T) 44.4 mmHg (35.0-45.0); ABG PH (T) 7.447 (7.350-7.450); FCOHb 0.3 % (0.5-1.5); FMetHb 0.3 % (0.3-1.12); FO2Hb 96.2 % (94-100); MINUTE VOLUME 7 L/min; PATIENT TEMPERATURE 36.8; PEEP 5 cm H2O; RESPIRATORY RATE 12 b/min; RESPIRATORY RATE (OBSERVED) 13 b/min; TIDAL VOLUME 500 mL; TOTAL HEMOGLOBIN 10.3 G/dl (14.0-17.9)
[2019-05-07] MEDS: potassium Cl 20 mEq SR tablet PO PRN ×3 (03:47→13:42)
[2019-05-07] MEDS: albuterol 2.5 MG/3 ML nebule NEB SCH ×4 (06:43→19:15)
[2019-05-07] MEDS: budesonide 0.5mg/2ml UD nebule IH SCH ×2 (06:43→19:14)
--- NOTE | 2019-05-07 06:59 | NUR ---
Patient in room ICU 2039. I have received report from Natali and had the opportunity to ask questions and assume patient care.
[2019-05-07 07:29] LABS: HEMATOCRIT 29.4 % (42.0-52.0); HEMOGLOBIN 9.8 g/dl (14.0-17.9); MEAN CORPUSCULAR HGB CONC 33.3 g/dL (33.0-36.5); MEAN CORPUSCULAR VOLUME 95.9 FL (78-98); MEAN PLATELET VOLUME 7.5 FL (7.4-10.4); PLATELET COUNT 69 X10'3 (140-440); RED BLOOD COUNT 3.07 X10'6 (4.70-6.10); RED CELL DISTRIBUTION WIDTH 16.6 % (11.5-14.5); WHITE BLOOD COUNT 5.8 X10'3 (4.5-11.0)
[2019-05-07] MEDS: sodium phosphate inj. 15 MMOL in dextrose 5%-water 150 ML IV PRN (07:31)
[2019-05-07] MEDS: POTASSIUM CL IV SCH ×2 (07:31→20:53)
[2019-05-07] MEDS: WATER IV SCH ×2 (07:31→20:53)
[2019-05-07] MEDS: MAGNESIUM IV SCH ×2 (07:31→20:53)
[2019-05-07] MEDS: DEXTROSE 5% IV SCH ×2 (07:31→20:53)
[2019-05-07] MEDS: amiodarone 200mg tablet PO SCH (08:54)
[2019-05-07] MEDS: pantoprazole 40 MG vial IV SCH (08:55)
[2019-05-07] MEDS: lactobacillus rhamnosus 10,000 MMU CELLS/CAPSULE PO SCH ×2 (08:55→20:48)
[2019-05-07] MEDS: cefepime 1GM in D5W 50mL 50 ML IV SCH (08:56)
[2019-05-07] MEDS: furosemide 40mg/4ml inj IV SCH ×2 (08:56→20:47)
[2019-05-07] MEDS: docusate sodium 100mg/10ml UD cup PO SCH ×2 (08:57→20:48)
[2019-05-07] MEDS ORDERED: levoFLOXACIN 250mg tablet PO SCH (11:00)
--- NOTE | 2019-05-07 11:56 | NUR ---
0900 Dr Osullivan here- made aware of decreased platelets, test for HIT, dc lovenox. Plan is for family meeting tomorrow at 0900. MD placed patient on spontaneous for a moment. + spontaneous respirations noted. assessment. Normotherapy pads to come off at 1215 today. weeping from wounds to BLE, dressings in place. Copious secretions with suctioning 1100- HIT antibody negative. Confirmed with family that family meeting will occur at 0900 tomorrow morning. MD wants patient on spontaneous at 0600 tomorrow morning, no sedation to resume.
--- NOTE | 2019-05-07 18:26 | NUR ---
Problems reprioritized. Patient report given, questions answered & plan of care reviewed with Natali.
--- NOTE | 2019-05-07 18:26 | NUR ---
Patient in room ICU 2039. I have received report from Teofilo ESCOBAR and had the opportunity to ask questions and assume patient care. Remains intubated on AC/VC mode FIO2 25% TV500 Rate 12 + 5 PEEP PS 40. Observed RR 14-16, observed TV 695. O2 saturation 98%. ETT secure with anchorfast. OGT taped securely to ETT. Tube feedings at goal rate Vital HP. Pt grimaces with gross movement in left arm when oral care rendered.Gag reflex absent. Pupils @3mm bilaterally & reactive to light. Rhythm is AFIB HR 114-130. Pedal pulses by doppler only. Capillary refill is brisk to all nail beds. Edema is generalized 3+ pitting. Right IJ quad lumen central line is transduced to CVP. Primary IVF infusing at 75ml/hr. Right femoral arterial line is sutured in. Occlusive dressing is intact. Good waveform/blood return. Laws cath drains yellow urine. Kerlix dressings to lower extremities bilaterally.
--- NOTE | 2019-05-07 19:37 | NUR ---
Family member at bedside. Multiple efforts made by family members to obtain a response from pt.
[2019-05-07] MEDS: insulin glargine (Lantus) pen - multi-dose SQ SCH (20:45)
--- NOTE | 2019-05-07 21:00 | NUR ---
Unable to weigh pt. Bed scale does not have a weight history & reads -35kg.
--- NOTE | 2019-05-07 23:30 | NUR ---
Heart rate 170-180 sustained. BP 102/57. J Raj aware & at bedside. Orders received for EKG, amiodarone bolus & drip to follow
[2019-05-07] MEDS ORDERED: amiodarone 150mg/dext, iso-os 100 ML IV ONE (23:35)
--- NOTE | 2019-05-07 23:45 | NUR ---
Amiodarone started. Bolus dose. A Fib HR 160-170's.
[2019-05-08] VITALS (24 sets, daily range): BP systolic 99–148; BP diastolic 47–73
[2019-05-08] MEDS: amiodarone/D5 360MG/200ML BAG 200 ML IV SCH ×4 (00:06→17:46)
--- NOTE | 2019-05-08 00:06 | NUR ---
Amiodarone drip now hung, infusing at 1mg/min . HR 134 BP 166/60.
[2019-05-08] MEDS: albumin (human) 25% 100ml IV 100 ML IV SCH ×2 (00:08→08:35)
--- NOTE | 2019-05-08 02:00 | NUR ---
Rhythm is Afib. HR 108-116.
[2019-05-08] MEDS: mineral oil/petrolatum ophthal oint EACHEYE SCH ×4 (02:23→20:00)
[2019-05-08] MEDS: insulin regular, human vial - multi-dose SQ SCH ×4 (02:28→19:53)
[2019-05-08 02:59] LABS: BASOPHILS % (AUTO) 0.2 % (0-1); EOSINOPHILS # (AUTO) 0.1 X10'3 (0-0.9); HEMATOCRIT 28.1 % (42.0-52.0); HEMOGLOBIN 9.4 g/dl (14.0-17.9); LYMPHOCYTES # (AUTO) 0.8 X10'3 (1.1-4.8); LYMPHOCYTES % (AUTO) 13.7 % (21-51); MEAN CORPUSCULAR HEMOGLOBIN 32.1 PG (27.0-31.0); MEAN CORPUSCULAR HGB CONC 33.3 g/dL (33.0-36.5); MEAN CORPUSCULAR VOLUME 96.4 FL (78-98); MEAN PLATELET VOLUME 8.5 FL (7.4-10.4); MONOCYTES # (AUTO) 0.7 X10'3 (0-0.9); MONOCYTES % (AUTO) 11.2 % (2-12); NEUTROPHILS # (AUTO) 4.4 X10'3 (1.8-7.7); NEUTROPHILS % (AUTO) 73.9 % (42-75); PLATELET COUNT 68 X10'3 (140-440); RED BLOOD COUNT 2.91 X10'6 (4.70-6.10); RED CELL DISTRIBUTION WIDTH 16.3 % (11.5-14.5); WHITE BLOOD COUNT 5.9 X10'3 (4.5-11.0)
[2019-05-08 03:04] LABS: ALANINE AMINOTRANSFERASE 165 U/L (12-78); ALBUMIN 3.5 G/DL (3.4-5.0); ALBUMIN/GLOBULIN RATIO 1.5 (1.1-1.5); ALKALINE PHOSPHATASE 53 IU/L (46-116); ANION GAP 4 (8-16); ASPARTATE AMINO TRANSFERASE 30 U/L (10-37); BILIRUBIN,TOTAL 1.4 MG/DL (0.1-1.0); BLOOD UREA NITROGEN 39 MG/DL (7-18); BUN/CREATININE RATIO 34.2 (5.4-32.0); CALCIUM 8.4 MG/DL (8.5-10.1); CHLORIDE 105 MMOL/L (99-107); CREATININE 1.14 MG/DL (0.60-1.10); GLUCOSE 196 MG/DL (70-104); MAGNESIUM 1.8 MG/DL (1.5-2.4); PREALBUMIN 13.6 MG/DL (19-36); SODIUM 141 MMOL/L (135-145); TOTAL CARBON DIOXIDE 31.8 MMOL/L (24-32); TOTAL PROTEIN 5.9 G/DL (6.4-8.2); eGFR 62 ML/MIN
--- NOTE | 2019-05-08 05:50 | NUR ---
Pt placed on spontaneous vent mode CPAP/PS FIO2 25% + 5 PEEP PS 10. Oxygen saturation is 97% RR 26.
--- NOTE | 2019-05-08 06:03 | NUR ---
Amiodarone at 0.5mg/min. Rhythm is Afib HR 98-105 QT 0.36 BP 131/58.
--- NOTE | 2019-05-08 06:36 | NUR ---
Patient in room ICU 2039. I have received report from Natali and had the opportunity to ask questions and assume patient care.
[2019-05-08] MEDS: albuterol 2.5 MG/3 ML nebule NEB SCH ×4 (07:09→19:45)
[2019-05-08] MEDS: budesonide 0.5mg/2ml UD nebule IH SCH ×2 (07:09→19:45)
[2019-05-08] MEDS: furosemide 40mg/4ml inj IV SCH ×2 (08:35→19:58)
[2019-05-08] MEDS: docusate sodium 100mg/10ml UD cup PO SCH ×2 (08:35→19:58)
[2019-05-08] MEDS: pantoprazole 40 MG vial IV SCH (08:35)
[2019-05-08] MEDS: lactobacillus rhamnosus 10,000 MMU CELLS/CAPSULE PO SCH ×2 (08:35→19:58)
[2019-05-08] MEDS: DEXTROSE 5% IV SCH ×2 (08:36→22:54)
[2019-05-08] MEDS: POTASSIUM CL IV SCH ×2 (08:36→22:54)
[2019-05-08] MEDS: WATER IV SCH ×2 (08:36→22:54)
[2019-05-08] MEDS: potassium Cl 20 mEq SR tablet PO PRN (08:36)
[2019-05-08] MEDS: MAGNESIUM IV SCH ×2 (08:36→22:54)
[2019-05-08] MEDS: cefepime 1GM in D5W 50mL 50 ML IV SCH (08:36)
[2019-05-08] MEDS: sodium phosphate inj. 15 MMOL in dextrose 5%-water 150 ML IV PRN (11:31)
--- NOTE | 2019-05-08 13:00 | NUR ---
F/U (05/08): Pt is still on ventilator, making improvement, however not following directions per bedside RN. Pt is tolerating TF well with GRV WNL.Temporary change TF formula to Glucerna at goal rate of 80ml/hr due to lack of Vital High Protein in stock. Pt has no documented BM x6days, per MD agrees to start miralax; discussed with bedside RN. Will continue to monitor. Recommendations: 1.Continuous TF using Vital High Protein at goal rate 80ml/hr;to provide 1920ml fluid,1920kcal, 1613ml free water, 168g protein. 2.If out of vital high protein, use Glucerna at goal rate of 80ml/hr. 3.Additional water flushes 200ml Q4H. 4.daily wt;prealbumin qM/Th 5.Bowel care routine Addendum: 05/08/19 at [address] Amended: Links added. Addendum: 05/08/19 at [address] G[facility]
--- NOTE | 2019-05-08 17:05 | NUR ---
0900- family meeting. patient more responsive, opening eyes, yawning, moving feet. occasionally opens eyes to what appears purposeful. Family and MD spoke. Continue supportive care. MD anticipating pt needing to stay in ICU and intubated until more alert and able to protect airwayl 1700- Patient has been on spontaneous since 529. Respirations up to 32, requested RT place him back on a rate for a rest.
--- NOTE | 2019-05-08 18:15 | NUR ---
Patient in room ICU 2039. I have received report from Jami ESCOBAR and had the opportunity to ask questions and assume patient care. Pt remains intubated back on vent ACVC mode FIO@ 25% with oxygen saturation 97%.ETT secure with anchorfast. Right IJ quad lumen central line is transduced to CVP. Occlusive dressing oozy with old blood. Clot not disturbed. Rhythm is AFib HR 108-112 pt remains on amiodarone drip. Right femoral arterial line is sutured in place, dressing is intact without hematoma. Dressings to bilateral lower extremities are dry & intact. No distress at shift change. Addendum: 05/09/19 at 0638 by Natali Leger RN Pt is on tube feedings via OGT taped to ETT. Glucerna FS at goal rate 80ml/hr.
[2019-05-08] MEDS: insulin glargine (Lantus) pen - multi-dose SQ SCH (19:58)
[2019-05-08] MEDS: NORepinephrine 8mg/ 250ml NS 250 ML IV SCH (20:15)
[2019-05-08] MEDS: polyethylene glycol 3350 17gm powd pack PO SCH (22:54)
[2019-05-09] VITALS (25 sets, daily range): BP systolic 82–148; BP diastolic 47–73
[2019-05-09] MEDS: insulin regular, human vial - multi-dose SQ SCH ×4 (02:05→20:00)
[2019-05-09] MEDS: mineral oil/petrolatum ophthal oint EACHEYE SCH ×4 (02:06→19:48)
[2019-05-09] MEDS: amiodarone/D5 360MG/200ML BAG 200 ML IV SCH (02:47)
[2019-05-09 02:50] LABS: BASOPHILS % (AUTO) 0.3 % (0-1); EOSINOPHILS # (AUTO) 0.1 X10'3 (0-0.9); EOSINOPHILS % (AUTO) 1.3 % (0-6); HEMATOCRIT 29.7 % (42.0-52.0); LYMPHOCYTES # (AUTO) 0.9 X10'3 (1.1-4.8); LYMPHOCYTES % (AUTO) 11.7 % (21-51); MEAN CORPUSCULAR HEMOGLOBIN 32.6 PG (27.0-31.0); MEAN CORPUSCULAR HGB CONC 33.8 g/dL (33.0-36.5); MEAN CORPUSCULAR VOLUME 96.3 FL (78-98); MEAN PLATELET VOLUME 8.6 FL (7.4-10.4); MONOCYTES # (AUTO) 0.8 X10'3 (0-0.9); MONOCYTES % (AUTO) 10.9 % (2-12); NEUTROPHILS # (AUTO) 5.6 X10'3 (1.8-7.7); NEUTROPHILS % (AUTO) 75.8 % (42-75); PLATELET COUNT 72 X10'3 (140-440); RED BLOOD COUNT 3.08 X10'6 (4.70-6.10); RED CELL DISTRIBUTION WIDTH 16.4 % (11.5-14.5); WHITE BLOOD COUNT 7.4 X10'3 (4.5-11.0)
[2019-05-09 03:05] LABS: ALANINE AMINOTRANSFERASE 122 U/L (12-78); ALBUMIN 3.2 G/DL (3.4-5.0); ALBUMIN/GLOBULIN RATIO 1.2 (1.1-1.5); ALKALINE PHOSPHATASE 62 IU/L (46-116); ANION GAP 7 (8-16); ASPARTATE AMINO TRANSFERASE 33 U/L (10-37); BILIRUBIN,TOTAL 1.2 MG/DL (0.1-1.0); BLOOD UREA NITROGEN 42 MG/DL (7-18); BUN/CREATININE RATIO 39.6 (5.4-32.0); CALCIUM 8.7 MG/DL (8.5-10.1); CHLORIDE 103 MMOL/L (99-107); CREATININE 1.06 MG/DL (0.60-1.10); GLUCOSE 135 MG/DL (70-104); PHOSPHORUS 2.7 MG/DL (2.3-4.5); POTASSIUM 4.2 MMOL/L (3.5-5.1); SODIUM 140 MMOL/L (135-145); TOTAL CARBON DIOXIDE 29.8 MMOL/L (24-32); TOTAL PROTEIN 5.8 G/DL (6.4-8.2); eGFR 67 ML/MIN
[2019-05-09] MEDS: potassium Cl 20 mEq SR tablet PO PRN (03:20)
[2019-05-09 04:20] LABS: ABG BASE EXCESS 3.7 mmol/L (-2.0-3.0); ABG HCO3 26.4 mmol/L (22.0-26.0); ABG OXYGEN SATURATION 97.4 % (95-98); ABG PO2 (T) 98.6 mmHg (83-108); FCOHb 0.3 % (0.5-1.5); FO2Hb 97.1 % (94-100); MINUTE VOLUME 10 L/min; PATIENT TEMPERATURE 37.4; PEEP 5 cm H2O; RESPIRATORY RATE 12 b/min; RESPIRATORY RATE (OBSERVED) 17 b/min; TIDAL VOLUME 500 mL; TOTAL HEMOGLOBIN 10.9 G/dl (14.0-17.9)
--- NOTE | 2019-05-09 06:15 | NUR ---
Problems reprioritized. Patient report given, questions answered & plan of care reviewed with Osbaldo ESCOBAR.
[2019-05-09] MEDS: budesonide 0.5mg/2ml UD nebule IH SCH ×2 (07:03→18:55)
[2019-05-09] MEDS: albuterol 2.5 MG/3 ML nebule NEB SCH ×4 (07:03→18:55)
[2019-05-09] MEDS: cefepime 1GM in D5W 50mL 50 ML IV SCH (08:26)
[2019-05-09] MEDS: furosemide 40mg/4ml inj IV SCH (08:27)
[2019-05-09] MEDS: pantoprazole 40 MG vial IV SCH (08:27)
[2019-05-09] MEDS: docusate sodium 100mg/10ml UD cup PO SCH ×2 (08:27→20:00)
[2019-05-09] MEDS: lactobacillus rhamnosus 10,000 MMU CELLS/CAPSULE PO SCH ×2 (08:28→20:35)
[2019-05-09] MEDS: amiodarone 200mg tablet PO SCH (08:29)
[2019-05-09] MEDS ORDERED: FLU VACC QS 2019-20 (6 MOS UP) 60 MCG/0.5 ML VIAL IMVAC ONE (11:45)
--- NOTE | 2019-05-09 14:00 | NUR ---
Patient's chest tube drainage canister full from hospital that he transferred from. Changed canister to atrium at this time. Restarting numbers at this time. Last number was [id number] in the canister from prior hospital.
[2019-05-09] MEDS: furosemide 10 MG/1 ML 10ml inj IV SCH (16:39)
--- NOTE | 2019-05-09 18:20 | NUR ---
Spoke with son, Louis and daughter, Olamide who state that the patient lives with his at home. And that the takes Xeralto and had a blood nose last week due to it. Informed them the plan to diurese the patient and that we are trying to wean him off the vent but he was not ready today.
--- NOTE | 2019-05-09 18:26 | NUR ---
Patient in room ICU 2039. I have received report and had the opportunity to ask questions and assume patient care. Pt remains orally intubated on CPAP mode FIO2 is 25% +5PEEP PS 10. Oxygen saturation is 98%.RR 18 min. ETT is secure with anchorfast. OGT is taped securely to ETT. Enteric feedings of Glucerna at goal rate 80ml/hr. Alert and responding to simple commands. Right IJ quad lumen central line is transduced to CVP.Ports are saline locked.Right femoral arterial line is sutured in place no hematoma. Rhythm is afib HR 111. Amiodarone drip is off and pt was started on PO Cordarone today. Left upper lateral chest tube is intact, dressing is dry. Chest tube drains serous fluid to [place] [facility] drain system with 20cm suction & is without crepitus or air leaks. Laws cath drains clear yellow urine. Safety precautions observed bilateral soft wrist restraints are secure. Bed brakes on, bed is in low position with side rails up & pt is in direct view. No distress, Addendum: 05/09/19 at 1852 by Navdeep Penn RN Error in charting. Note written under incorrect log on.
--- NOTE | 2019-05-09 18:29 | NUR ---
Problems reprioritized. Patient report given, questions answered & plan of care reviewed with Natali ESCOBAR.
--- NOTE | 2019-05-09 18:51 | NUR ---
Patient in room ICU 2039. I have received report and had the opportunity to ask questions and assume patient care. Pt remains orally intubated on CPAP mode FIO2 is 25% +5PEEP PS 10. Oxygen saturation is 98%.RR 18 min. ETT is secure with anchorfast. OGT is taped securely to ETT. Enteric feedings of Glucerna at goal rate 80ml/hr. Alert and responding to simple commands. Right IJ quad lumen central line is transduced to CVP.Ports are saline locked.Right femoral arterial line is sutured in place no hematoma. Rhythm is afib HR 111. Amiodarone drip is off and pt was started on PO Cordarone today. Left upper lateral chest tube is intact, dressing is dry. Chest tube drains serous fluid to [place] [facility] drain system with 20cm suction & is without crepitus or air leaks. Laws cath drains clear yellow urine. Safety precautions observed bilateral soft wrist restraints are secure. Bed brakes on, bed is in low position with side rails up & pt is in direct view. No distress.
[2019-05-09] MEDS: polyethylene glycol 3350 17gm powd pack PO SCH (20:35)
[2019-05-09] MEDS: insulin glargine (Lantus) pen - multi-dose SQ SCH (21:24)
[2019-05-09] MEDS ORDERED: gelatin sponge, absorbable (Gelfoam 12-7MM) sponge TP ONE (23:20)
[2019-05-10] VITALS (24 sets, daily range): BP systolic 83–150; BP diastolic 40–67
--- NOTE | 2019-05-10 | NUR ---
CHG bath rendered. Lined/gown changed. Pt is more alert moving both arms and follows simple commands. Rhythm is afib HR 118-120. No distress, remains on CPAP 25% FIO2 with oxygen [id number]%. RR 20-22/min. Pt is tolerating tube feedings with 10ml residual. Passing flatus.
--- NOTE | 2019-05-10 00:30 | NUR ---
Right IJ central line dressing changed. Sit oozing blood at insertion site. Gel foam sponge applied with occlusive dressing. No further oozing noted.
[2019-05-10] MEDS: furosemide 10 MG/1 ML 10ml inj IV SCH ×4 (01:00→23:51)
[2019-05-10] MEDS: mineral oil/petrolatum ophthal oint EACHEYE SCH ×4 (02:17→20:00)
[2019-05-10] MEDS: insulin regular, human vial - multi-dose SQ SCH ×2 (02:20→08:00)
[2019-05-10 02:49] LABS: BASOPHILS % (AUTO) 0.4 % (0-1); EOSINOPHILS % (AUTO) 0.6 % (0-6); HEMATOCRIT 29.2 % (42.0-52.0); HEMOGLOBIN 9.8 g/dl (14.0-17.9); LYMPHOCYTES # (AUTO) 0.7 X10'3 (1.1-4.8); LYMPHOCYTES % (AUTO) 8.4 % (21-51); MEAN CORPUSCULAR HEMOGLOBIN 32.4 PG (27.0-31.0); MEAN CORPUSCULAR HGB CONC 33.6 g/dL (33.0-36.5); MEAN CORPUSCULAR VOLUME 96.3 FL (78-98); MONOCYTES # (AUTO) 0.7 X10'3 (0-0.9); MONOCYTES % (AUTO) 8.8 % (2-12); NEUTROPHILS # (AUTO) 6.4 X10'3 (1.8-7.7); NEUTROPHILS % (AUTO) 81.8 % (42-75); PLATELET COUNT 88 X10'3 (140-440); RED BLOOD COUNT 3.03 X10'6 (4.70-6.10); RED CELL DISTRIBUTION WIDTH 16.6 % (11.5-14.5); WHITE BLOOD COUNT 7.8 X10'3 (4.5-11.0)
[2019-05-10 02:56] LABS: ABG BASE EXCESS 5.8 mmol/L (-2.0-3.0); ABG OXYGEN SATURATION 96.6 % (95-98); ABG PCO2 (T) 37.3 mmHg (35.0-45.0); ABG PH (T) 7.509 (7.350-7.450); ABG PO2 (T) 88.3 mmHg (83-108); FCOHb 0.1 % (0.5-1.5); FO2Hb 96.5 % (94-100); MINUTE VOLUME 7 L/min; PATIENT TEMPERATURE 37.1; PEEP 5 cm H2O; RESPIRATORY RATE 0 b/min; RESPIRATORY RATE (OBSERVED) 22 b/min; TIDAL VOLUME 356 mL; TOTAL HEMOGLOBIN 10.8 G/dl (14.0-17.9)
--- NOTE | 2019-05-10 03:00 | NUR ---
Large soft brown stool passed. Neelam care rendered, bottom linen changed.
[2019-05-10 03:02] LABS: ALANINE AMINOTRANSFERASE 97 U/L (12-78); ALBUMIN 2.7 G/DL (3.4-5.0); ALKALINE PHOSPHATASE 65 IU/L (46-116); ANION GAP 3 (8-16); ASPARTATE AMINO TRANSFERASE 29 U/L (10-37); BILIRUBIN,TOTAL 1.5 MG/DL (0.1-1.0); BLOOD UREA NITROGEN 44 MG/DL (7-18); BUN/CREATININE RATIO 44.4 (5.4-32.0); CALCIUM 8.7 MG/DL (8.5-10.1); CHLORIDE 102 MMOL/L (99-107); CREATININE 0.99 MG/DL (0.60-1.10); GLUCOSE 131 MG/DL (70-104); PHOSPHORUS 3.5 MG/DL (2.3-4.5); SODIUM 139 MMOL/L (135-145); TOTAL CARBON DIOXIDE 33.8 MMOL/L (24-32); TOTAL PROTEIN 5.5 G/DL (6.4-8.2); eGFR 73 ML/MIN
[2019-05-10] MEDS: potassium Cl 20 mEq SR tablet PO PRN (05:53)
--- NOTE | 2019-05-10 06:25 | NUR ---
Problems reprioritized. Patient report given, questions answered & plan of care reviewed with Sloane ESCOBAR.
--- NOTE | 2019-05-10 06:32 | NUR ---
Patient in room ICU 2039. I have received report from SHAWN Hurst and had the opportunity to ask questions and assume patient care.
[2019-05-10] MEDS: pantoprazole 40 MG vial IV SCH (07:31)
[2019-05-10] MEDS: amiodarone 200mg tablet PO SCH (07:33)
[2019-05-10] MEDS: lactobacillus rhamnosus 10,000 MMU CELLS/CAPSULE PO SCH ×2 (07:33→20:00)
[2019-05-10] MEDS: cefepime 1GM in D5W 50mL 50 ML IV SCH (07:34)
[2019-05-10] MEDS: budesonide 0.5mg/2ml UD nebule IH SCH ×2 (07:40→19:38)
[2019-05-10] MEDS: albuterol 2.5 MG/3 ML nebule NEB SCH ×4 (07:40→19:38)
[2019-05-10] MEDS: docusate sodium 100mg/10ml UD cup PO SCH ×2 (08:00→20:00)
--- NOTE | 2019-05-10 16:48 | NUR ---
Pt extubated at 1233 without complications. On 2L NC since then, weak cough. Encouraging pt to spit out sputum rather than swallow it. CVL and ART line removed per MD orders. No s/s of distress. PIV placed by PICC line RN
--- NOTE | 2019-05-10 18:30 | NUR ---
Problems reprioritized. Patient report given, questions answered & plan of care reviewed with SHAWN Gilbert.
--- NOTE | 2019-05-10 18:35 | NUR ---
Patient in room ICU 2039. I have received report from Sloane ESCOBAR, and had the opportunity to ask questions and assume patient care.
--- NOTE | 2019-05-10 19:45 | NUR ---
PT is sitting up in bed with no s/s of distress noted at this time. VSS. PT receiving 2L O 2 to NC and tolerating well. O2 sat > 95%. Flutter valve and IS within reach and PT educated on how to use. PT has a weak, productive cough and is able to clear secretions with encouragement from nursing and RT. CT to LT chest is in place with serous drainage noted in tubing. Laws in place draining to gravity. Bed is locked and low. Call light is within reach. Will continue to monitor.
[2019-05-10] MEDS: polyethylene glycol 3350 17gm powd pack PO SCH (20:06)
[2019-05-10] MEDS: insulin glargine (Lantus) pen - multi-dose SQ SCH (20:07)
[2019-05-10] MEDS: sodium chloride inj. 154 MEQ in Dextrose 10%-water IV solution 961.5 ML IV SCH (21:29)
--- NOTE | 2019-05-10 23:00 | NUR ---
PT resting with no s/s of distress noted at this time. VSS. PM personal hygiene has been performed and Drsg's to BLE changed per WT orders. PT tolerated well. Bed is locked and low. Call light is within reach. Will continue to monitor.
[2019-05-11] VITALS (24 sets, daily range): BP systolic 87–118; BP diastolic 44–71
[2019-05-11 01:18] LABS: BASOPHILS % (AUTO) 0.2 % (0-1); EOSINOPHILS % (AUTO) 0.5 % (0-6); HEMATOCRIT 30.2 % (42.0-52.0); HEMOGLOBIN 10.1 g/dl (14.0-17.9); LYMPHOCYTES # (AUTO) 0.8 X10'3 (1.1-4.8); LYMPHOCYTES % (AUTO) 9.1 % (21-51); MEAN CORPUSCULAR HEMOGLOBIN 32.3 PG (27.0-31.0); MEAN CORPUSCULAR HGB CONC 33.4 g/dL (33.0-36.5); MEAN CORPUSCULAR VOLUME 96.6 FL (78-98); MEAN PLATELET VOLUME 9.2 FL (7.4-10.4); MONOCYTES # (AUTO) 0.7 X10'3 (0-0.9); MONOCYTES % (AUTO) 8.1 % (2-12); NEUTROPHILS % (AUTO) 82.1 % (42-75); PLATELET COUNT 109 X10'3 (140-440); RED BLOOD COUNT 3.13 X10'6 (4.70-6.10); RED CELL DISTRIBUTION WIDTH 16.4 % (11.5-14.5); WHITE BLOOD COUNT 8.5 X10'3 (4.5-11.0)
[2019-05-11 01:24] LABS: ALANINE AMINOTRANSFERASE 74 U/L (12-78); ALBUMIN 2.4 G/DL (3.4-5.0); ALBUMIN/GLOBULIN RATIO 0.9 (1.1-1.5); ALKALINE PHOSPHATASE 60 IU/L (46-116); ANION GAP 2 (8-16); ASPARTATE AMINO TRANSFERASE 24 U/L (10-37); BILIRUBIN,TOTAL 1.5 MG/DL (0.1-1.0); BLOOD UREA NITROGEN 41 MG/DL (7-18); BUN/CREATININE RATIO 42.7 (5.4-32.0); CHLORIDE 108 MMOL/L (99-107); CREATININE 0.96 MG/DL (0.60-1.10); GLUCOSE 169 MG/DL (70-104); MAGNESIUM 1.8 MG/DL (1.5-2.4); PHOSPHORUS 3.6 MG/DL (2.3-4.5); POTASSIUM 3.4 MMOL/L (3.5-5.1); PREALBUMIN 14.4 MG/DL (19-36); SODIUM 144 MMOL/L (135-145); TOTAL CARBON DIOXIDE 34.4 MMOL/L (24-32); eGFR 76 ML/MIN
[2019-05-11] MEDS: mineral oil/petrolatum ophthal oint EACHEYE SCH ×2 (01:48→08:00)
[2019-05-11] MEDS: potassium CL 10mEq/100ml bag 100 ML IV PRN ×8 (01:49→16:08)
--- NOTE | 2019-05-11 03:00 | NUR ---
PT is resting with no s/s of distress noted at this time. VSS. Bed is locked and low. Call light is within reach. Will continue to monitor.
--- NOTE | 2019-05-11 06:27 | NUR ---
Problems reprioritized. Patient report given, questions answered & plan of care reviewed with Sloane ESCOBAR.
[2019-05-11] MEDS: albuterol 2.5 MG/3 ML nebule NEB SCH ×4 (07:01→20:13)
[2019-05-11] MEDS: budesonide 0.5mg/2ml UD nebule IH SCH ×2 (07:08→20:13)
[2019-05-11] MEDS: amiodarone 200mg tablet PO SCH (08:09)
[2019-05-11] MEDS: pantoprazole 40 MG vial IV SCH (08:09)
[2019-05-11] MEDS: cefepime 1GM in D5W 50mL 50 ML IV SCH (08:09)
[2019-05-11] MEDS: lactobacillus rhamnosus 10,000 MMU CELLS/CAPSULE PO SCH ×2 (08:09→20:14)
[2019-05-11] MEDS: docusate sodium 100mg/10ml UD cup PO SCH ×2 (08:09→20:14)
[2019-05-11] MEDS: furosemide 10 MG/1 ML 10ml inj IV SCH ×2 (08:11→20:15)
[2019-05-11 11:31] LABS: MAGNESIUM 2.1 MG/DL (1.5-2.4); POTASSIUM 3.4 MMOL/L (3.5-5.1)
[2019-05-11] MEDS: spironolactone 25 MG tablet PO SCH ×2 (11:53→20:14)
--- NOTE | 2019-05-11 12:14 | NUR ---
F/U (05/11): Pt was extubated yesterday, following commands, but a little off mentation per bedside RN. Physical therapist worked with this pt this morning. Pt passed the BSS with speech therapist recommends puree thin liquid diet. Pt had a tray this morning, documented with 25-50% first meal. Will monitor trends in po intake and need for ONS. Pt previously receiving D10 due to hypoglycemia, however, has now been discontinued. Will monitor blood sugars and need for addition of carb controlled diet.[facility] 05/10. Will continue to monitor. Recommendations: 1.Continue heart healthy diet, puree thin liquid per ST; monitor BG and need for carb controlled diet 2.Wt per rx 3.Bowel care routine Addendum: 05/11/19 at [address] Amended: Links added. Addendum: 05/11/19 at [address] I have reviewed and agree with note by Nitric Acid Concentrator Operator. Saranya Stephen, RD
--- NOTE | 2019-05-11 18:26 | NUR ---
Problems reprioritized. Patient report given, questions answered & plan of care reviewed with SHAWN Gilbert.
--- NOTE | 2019-05-11 18:30 | NUR ---
Patient in room ICU 2039. I have received report from Sloane ESCOBAR, and had the opportunity to ask questions and assume patient care.
--- NOTE | 2019-05-11 19:30 | NUR ---
PT is sitting up in bed with no s/s of distress noted at this time. VSS. PT receiving 2L O 2 to NC and tolerating well. O2 sat > 95%. Flutter valve and IS within reach. and daughter are at bedside visiting. CT to LT chest is in place with serous drainage noted in tubing. Laws in place draining to gravity. Bed is locked and low. Call light is within reach. Will continue to monitor.
[2019-05-11] MEDS: polyethylene glycol 3350 17gm powd pack PO SCH (21:00)
[2019-05-11] MEDS: insulin glargine (Lantus) pen - multi-dose SQ SCH (21:00)
[2019-05-12] VITALS (19 sets, daily range): BP systolic 95–136; BP diastolic 39–71
--- NOTE | 2019-05-12 02:30 | NUR ---
PT continues to rest, sleeping off and on with no s/s of distress noted at this time. VSS. Bed is locked and low. Call light is within reach. Will continue to monitor.
[2019-05-12 05:20] LABS: BASOPHILS # (AUTO) 0.1 X10'3 (0-0.2); BASOPHILS % (AUTO) 0.9 % (0-1); EOSINOPHILS % (AUTO) 0.6 % (0-6); HEMATOCRIT 31.7 % (42.0-52.0); HEMOGLOBIN 10.8 g/dl (14.0-17.9); LYMPHOCYTES # (AUTO) 0.9 X10'3 (1.1-4.8); LYMPHOCYTES % (AUTO) 10.6 % (21-51); MEAN CORPUSCULAR HEMOGLOBIN 32.8 PG (27.0-31.0); MEAN CORPUSCULAR HGB CONC 34.1 g/dL (33.0-36.5); MONOCYTES # (AUTO) 0.6 X10'3 (0-0.9); MONOCYTES % (AUTO) 7.1 % (2-12); NEUTROPHILS # (AUTO) 6.6 X10'3 (1.8-7.7); NEUTROPHILS % (AUTO) 80.8 % (42-75); PLATELET COUNT 170 X10'3 (140-440); RED CELL DISTRIBUTION WIDTH 17.1 % (11.5-14.5); WHITE BLOOD COUNT 8.1 X10'3 (4.5-11.0)
[2019-05-12 05:22] LABS: ALANINE AMINOTRANSFERASE 69 U/L (12-78); ALBUMIN 2.7 G/DL (3.4-5.0); ALBUMIN/GLOBULIN RATIO 0.8 (1.1-1.5); ALKALINE PHOSPHATASE 77 IU/L (46-116); ANION GAP 2 (8-16); ASPARTATE AMINO TRANSFERASE 19 U/L (10-37); BILIRUBIN,TOTAL 1.5 MG/DL (0.1-1.0); BLOOD UREA NITROGEN 39 MG/DL (7-18); BUN/CREATININE RATIO 33.6 (5.4-32.0); CALCIUM 9.2 MG/DL (8.5-10.1); CHLORIDE 105 MMOL/L (99-107); CREATININE 1.16 MG/DL (0.60-1.10); GLUCOSE 142 MG/DL (70-104); MAGNESIUM 2.2 MG/DL (1.5-2.4); PHOSPHORUS 3.8 MG/DL (2.3-4.5); POTASSIUM 3.8 MMOL/L (3.5-5.1); SODIUM 142 MMOL/L (135-145); TOTAL CARBON DIOXIDE 34.6 MMOL/L (24-32); TOTAL PROTEIN 6.1 G/DL (6.4-8.2); eGFR 61 ML/MIN
[2019-05-12] MEDS: sodium chloride inj. 154 MEQ in Dextrose 10%-water IV solution 961.5 ML IV SCH (05:35)
--- NOTE | 2019-05-12 06:56 | NUR ---
Problems reprioritized. Patient report given, questions answered & plan of care reviewed with Brenda ESCOBAR.
[2019-05-12] MEDS: docusate sodium 100mg/10ml UD cup PO SCH ×2 (08:17→20:00)
[2019-05-12] MEDS: pantoprazole 40 MG vial IV SCH (08:17)
[2019-05-12] MEDS: amiodarone 200mg tablet PO SCH (08:18)
[2019-05-12] MEDS: spironolactone 25 MG tablet PO SCH ×3 (08:18→22:44)
[2019-05-12] MEDS: lactobacillus rhamnosus 10,000 MMU CELLS/CAPSULE PO SCH ×2 (08:18→20:00)
[2019-05-12] MEDS: cefepime 1GM in D5W 50mL 50 ML IV SCH (08:19)
[2019-05-12] MEDS: albuterol 2.5 MG/3 ML nebule NEB SCH ×4 (08:28→20:53)
[2019-05-12] MEDS: budesonide 0.5mg/2ml UD nebule IH SCH ×2 (08:29→20:53)
--- NOTE | 2019-05-12 08:54 | NUR ---
I have reviewed and agree with all medications administered and interventions performed by [facility] Student Edgardo Arevalo Addendum: 05/12/19 at 0854 by Oksana Garcia RT Amended: Links added.
[2019-05-12] MEDS: furosemide 10 MG/1 ML 10ml inj IV SCH ×2 (11:18→22:44)
--- NOTE | 2019-05-12 14:58 | NUR ---
Patient in room ICU 2039. I have received report from BrendaCONDUCTOR SLEEPING CAR and had the opportunity to ask questions and assume patient care.
--- NOTE | 2019-05-12 15:00 | NUR ---
Patient stable for transfer per MD order. Patient report called to SHAWN Hidalgo on ACCE unit. Patient transported via bed to room 307.
--- NOTE | 2019-05-12 16:00 | NUR ---
received report from [facility] horticultural specialty grower inside,reviewed care, asked for clarification on chest tube output,rn stated would come by and charline tube
--- NOTE | 2019-05-12 18:30 | NUR ---
Patient in room MED 307. I have received report from Gwen ESCOBAR and had the opportunity to ask questions and assume patient care. bedside reported completed, no distress noted.
--- NOTE | 2019-05-12 18:39 | NUR ---
Problems reprioritized. Patient report given, questions answered & plan of care reviewed with SHAWN Rowland.
[2019-05-12] MEDS: insulin glargine (Lantus) pen - multi-dose SQ SCH (21:00)
[2019-05-12] MEDS: polyethylene glycol 3350 17gm powd pack PO SCH (21:00)
--- NOTE | 2019-05-12 22:17 | NUR ---
[address]nd [address] Miller. PAGER ID: [phone] MESSAGE: magnus sanchez [phone] admit chest pain, SOB. ETOH HR remains 136 with diltizem drip at 10 mls. bp 113/72. will continue to monitor Addendum: 05/12/19 at 2229 by Mary Bueno RN wrong pt.
[2019-05-13 02:00] VITALS: BP 118/43
[2019-05-13 05:36] LABS: BASOPHILS # (AUTO) 0.1 X10'3 (0-0.2); BASOPHILS % (AUTO) 0.9 % (0-1); EOSINOPHILS # (AUTO) 0.1 X10'3 (0-0.9); HEMATOCRIT 32.9 % (42.0-52.0); HEMOGLOBIN 10.9 g/dl (14.0-17.9); LYMPHOCYTES # (AUTO) 0.9 X10'3 (1.1-4.8); LYMPHOCYTES % (AUTO) 10.3 % (21-51); MEAN CORPUSCULAR HEMOGLOBIN 32.6 PG (27.0-31.0); MEAN CORPUSCULAR HGB CONC 33.3 g/dL (33.0-36.5); MEAN CORPUSCULAR VOLUME 98.1 FL (78-98); MEAN PLATELET VOLUME 8.6 FL (7.4-10.4); MONOCYTES # (AUTO) 0.6 X10'3 (0-0.9); MONOCYTES % (AUTO) 6.6 % (2-12); NEUTROPHILS % (AUTO) 81.2 % (42-75); PLATELET COUNT 199 X10'3 (140-440); RED BLOOD COUNT 3.35 X10'6 (4.70-6.10); RED CELL DISTRIBUTION WIDTH 16.8 % (11.5-14.5); WHITE BLOOD COUNT 8.6 X10'3 (4.5-11.0)
[2019-05-13 05:49] LABS: ALANINE AMINOTRANSFERASE 59 U/L (12-78); ALBUMIN 2.7 G/DL (3.4-5.0); ALBUMIN/GLOBULIN RATIO 0.8 (1.1-1.5); ALKALINE PHOSPHATASE 82 IU/L (46-116); ANION GAP 4 (8-16); ASPARTATE AMINO TRANSFERASE 19 U/L (10-37); BILIRUBIN,TOTAL 1.4 MG/DL (0.1-1.0); BLOOD UREA NITROGEN 33 MG/DL (7-18); CHLORIDE 105 MMOL/L (99-107); GLUCOSE 126 MG/DL (70-104); PHOSPHORUS 3.4 MG/DL (2.3-4.5); POTASSIUM 3.7 MMOL/L (3.5-5.1); SODIUM 145 MMOL/L (135-145); TOTAL CARBON DIOXIDE 35.6 MMOL/L (24-32); eGFR 65 ML/MIN
[2019-05-13 06:00] VITALS: BP 105/55
--- NOTE | 2019-05-13 06:00 | NUR ---
Patient in room MED 307. I have received report from Court ESCOBAR and had the opportunity to ask questions and assume patient care.
--- NOTE | 2019-05-13 06:32 | NUR ---
Problems reprioritized. Patient report given, Wilton ESCOBAR questions answered & plan of care reviewed with .
[2019-05-13] MEDS: budesonide 0.5mg/2ml UD nebule IH SCH ×2 (07:26→19:02)
[2019-05-13] MEDS: albuterol 2.5 MG/3 ML nebule NEB SCH ×4 (07:26→19:02)
[2019-05-13] MEDS: lactobacillus rhamnosus 10,000 MMU CELLS/CAPSULE PO SCH ×2 (08:16→19:58)
[2019-05-13] MEDS: docusate sodium 100mg/10ml UD cup PO SCH ×2 (08:16→19:57)
[2019-05-13] MEDS: amiodarone 200mg tablet PO SCH (08:16)
[2019-05-13] MEDS: pantoprazole 40 MG vial IV SCH (08:18)
[2019-05-13] MEDS: furosemide 10 MG/1 ML 10ml inj IV SCH ×2 (08:18→19:57)
[2019-05-13] MEDS: cefepime 1GM in D5W 50mL 50 ML IV SCH (08:19)
[2019-05-13] MEDS: rivaroxaban 20mg tablet PO SCH (12:08)
[2019-05-13 15:00] VITALS: BP 105/62
--- NOTE | 2019-05-13 15:56 | NUR ---
Pt bladder scanned, 15ml.
--- NOTE | 2019-05-13 16:56 | NUR ---
Pt has light red hematauria in cath drainage bag. Germania WOOD notified; will continue to monitor since Pt was restarted on Xeralto this morning.
[2019-05-13 18:00] VITALS: BP 99/66
--- NOTE | 2019-05-13 18:00 | NUR ---
Problems reprioritized. Patient report given, questions answered & plan of care reviewed with Eden ESCOBAR.
--- NOTE | 2019-05-13 18:00 | NUR ---
Patient in room MED 307. I have received report from Wilton ESCOBAR and had the opportunity to ask questions and assume patient care.
[2019-05-13] MEDS: polyethylene glycol 3350 17gm powd pack PO SCH (19:58)
[2019-05-13] MEDS: insulin glargine (Lantus) pen - multi-dose SQ SCH (21:00)
[2019-05-13 23:00] VITALS: BP 112/53
[2019-05-14 02:00] VITALS: BP_SYST 112; BP_SYST 115; BP_DIAS 53; BP_DIAS 60
[2019-05-14 05:39] LABS: ALANINE AMINOTRANSFERASE 50 U/L (12-78); ALBUMIN 2.6 G/DL (3.4-5.0); ALBUMIN/GLOBULIN RATIO 0.8 (1.1-1.5); ALKALINE PHOSPHATASE 90 IU/L (46-116); ANION GAP 3 (8-16); ASPARTATE AMINO TRANSFERASE 18 U/L (10-37); BILIRUBIN,TOTAL 1.3 MG/DL (0.1-1.0); BLOOD UREA NITROGEN 29 MG/DL (7-18); BUN/CREATININE RATIO 27.9 (5.4-32.0); CALCIUM 8.9 MG/DL (8.5-10.1); CHLORIDE 106 MMOL/L (99-107); CREATININE 1.04 MG/DL (0.60-1.10); GLUCOSE 129 MG/DL (70-104); PHOSPHORUS 3.4 MG/DL (2.3-4.5); POTASSIUM 3.4 MMOL/L (3.5-5.1); SODIUM 144 MMOL/L (135-145); TOTAL CARBON DIOXIDE 35.1 MMOL/L (24-32); eGFR 69 ML/MIN
[2019-05-14 05:59] LABS: BASOPHILS # (AUTO) 0.1 X10'3 (0-0.2); BASOPHILS % (AUTO) 0.8 % (0-1); EOSINOPHILS # (AUTO) 0.1 X10'3 (0-0.9); HEMATOCRIT 32.4 % (42.0-52.0); LYMPHOCYTES # (AUTO) 0.8 X10'3 (1.1-4.8); LYMPHOCYTES % (AUTO) 9.6 % (21-51); MEAN CORPUSCULAR HEMOGLOBIN 33.2 PG (27.0-31.0); MEAN CORPUSCULAR HGB CONC 33.8 g/dL (33.0-36.5); MEAN CORPUSCULAR VOLUME 98.1 FL (78-98); MEAN PLATELET VOLUME 8.5 FL (7.4-10.4); MONOCYTES # (AUTO) 0.5 X10'3 (0-0.9); MONOCYTES % (AUTO) 6.3 % (2-12); NEUTROPHILS # (AUTO) 7.2 X10'3 (1.8-7.7); NEUTROPHILS % (AUTO) 82.3 % (42-75); PLATELET COUNT 225 X10'3 (140-440); RED BLOOD COUNT 3.31 X10'6 (4.70-6.10); RED CELL DISTRIBUTION WIDTH 16.6 % (11.5-14.5); WHITE BLOOD COUNT 8.7 X10'3 (4.5-11.0)
[2019-05-14] MEDS: albuterol 2.5 MG/3 ML nebule NEB SCH ×4 (06:55→21:20)
[2019-05-14] MEDS: budesonide 0.5mg/2ml UD nebule IH SCH ×2 (06:55→21:20)
[2019-05-14 07:00] VITALS: BP 92/68
[2019-05-14] MEDS: spironolactone 25 MG tablet PO SCH ×2 (08:00→15:21)
[2019-05-14] MEDS: pantoprazole 40 MG vial IV SCH (08:00)
[2019-05-14] MEDS: amiodarone 200mg tablet PO SCH (08:00)
[2019-05-14] MEDS: cefepime 1GM in D5W 50mL 50 ML IV SCH (08:00)
[2019-05-14] MEDS: lactobacillus rhamnosus 10,000 MMU CELLS/CAPSULE PO SCH ×2 (08:00→19:41)
[2019-05-14] MEDS: furosemide 10 MG/1 ML 10ml inj IV SCH (08:00)
[2019-05-14] MEDS: potassium Cl 20 mEq SR tablet PO PRN ×3 (09:15→19:37)
[2019-05-14] MEDS: docusate sodium 100mg/10ml UD cup PO SCH ×2 (09:19→19:42)
[2019-05-14] MEDS: rivaroxaban 20mg tablet PO SCH (09:19)
[2019-05-14] MEDS ORDERED: normal saline 1000ml 1,000 ML IV ONE (10:55)
[2019-05-14 11:00] VITALS: BP 108/57
[2019-05-14] MEDS: ipratropium/albuterol 3ml nebule NEB PRN (14:47)
[2019-05-14 18:00] VITALS: BP 115/52
--- NOTE | 2019-05-14 18:00 | NUR ---
Patient in room MED 307. I have received report from Ale ESCOBAR and had the opportunity to ask questions and assume patient care.
--- NOTE | 2019-05-14 18:32 | NUR ---
patient given bolus; 1000ml of ns as per order. patient tolerated well. reported off to helicopter specialist nurse. Addendum: 05/14/19 at 1834 by Germaine Carmichael RN Amended: Links added.
[2019-05-14] MEDS: acetaminophen 325mg tablet PO PRN (19:41)
[2019-05-14] MEDS ORDERED: apixaban 2.5mg tablet PO SCH (20:00)
[2019-05-14] MEDS: polyethylene glycol 3350 17gm powd pack PO SCH (21:00)
[2019-05-14 22:00] VITALS: BP 95/62
--- NOTE | 2019-05-14 22:00 | NUR ---
Noting that patient has afib, cvr to rvr 90-140's through shift, non-symptomatic, but heart rate labile. MD aware per day shift RN report.
[2019-05-15 05:38] LABS: ALANINE AMINOTRANSFERASE 59 U/L (12-78); ALBUMIN 2.6 G/DL (3.4-5.0); ALBUMIN/GLOBULIN RATIO 0.7 (1.1-1.5); ALKALINE PHOSPHATASE 96 IU/L (46-116); ANION GAP 5 (8-16); ASPARTATE AMINO TRANSFERASE 28 U/L (10-37); BASOPHILS # (AUTO) 0.1 X10'3 (0-0.2); BASOPHILS % (AUTO) 0.7 % (0-1); BILIRUBIN,TOTAL 1.2 MG/DL (0.1-1.0); BLOOD UREA NITROGEN 27 MG/DL (7-18); BUN/CREATININE RATIO 23.9 (5.4-32.0); CHLORIDE 106 MMOL/L (99-107); CREATININE 1.13 MG/DL (0.60-1.10); EOSINOPHILS # (AUTO) 0.1 X10'3 (0-0.9); EOSINOPHILS % (AUTO) 0.8 % (0-6); GLUCOSE 136 MG/DL (70-104); HEMATOCRIT 33.6 % (42.0-52.0); HEMOGLOBIN 11.2 g/dl (14.0-17.9); LYMPHOCYTES # (AUTO) 0.8 X10'3 (1.1-4.8); LYMPHOCYTES % (AUTO) 8.6 % (21-51); MAGNESIUM 2.1 MG/DL (1.5-2.4); MEAN CORPUSCULAR HEMOGLOBIN 32.6 PG (27.0-31.0); MEAN CORPUSCULAR HGB CONC 33.3 g/dL (33.0-36.5); MEAN CORPUSCULAR VOLUME 97.8 FL (78-98); MEAN PLATELET VOLUME 8.6 FL (7.4-10.4); MONOCYTES # (AUTO) 0.5 X10'3 (0-0.9); MONOCYTES % (AUTO) 5.4 % (2-12); NEUTROPHILS # (AUTO) 7.9 X10'3 (1.8-7.7); NEUTROPHILS % (AUTO) 84.5 % (42-75); PHOSPHORUS 3.2 MG/DL (2.3-4.5); PLATELET COUNT 262 X10'3 (140-440); POTASSIUM 4.2 MMOL/L (3.5-5.1); RED BLOOD COUNT 3.44 X10'6 (4.70-6.10); RED CELL DISTRIBUTION WIDTH 17.6 % (11.5-14.5); SODIUM 143 MMOL/L (135-145); TOTAL CARBON DIOXIDE 32.3 MMOL/L (24-32); TOTAL PROTEIN 6.2 G/DL (6.4-8.2); WHITE BLOOD COUNT 9.3 X10'3 (4.5-11.0); eGFR 63 ML/MIN
--- NOTE | 2019-05-15 06:22 | NUR ---
Problems reprioritized. Patient report given, questions answered & plan of care reviewed with Ale ESCOBAR.
[2019-05-15 07:00] VITALS: BP 123/62
[2019-05-15] MEDS: albuterol 2.5 MG/3 ML nebule NEB SCH ×4 (07:15→19:29)
[2019-05-15] MEDS: budesonide 0.5mg/2ml UD nebule IH SCH ×2 (07:15→19:30)
[2019-05-15] MEDS: amiodarone 200mg tablet PO SCH (08:00)
[2019-05-15] MEDS: apixaban 5mg tablet PO SCH ×2 (08:00→20:13)
[2019-05-15] MEDS: cefepime 1GM in D5W 50mL 50 ML IV SCH (08:00)
[2019-05-15] MEDS: docusate sodium 100mg/10ml UD cup PO SCH ×2 (08:00→20:00)
[2019-05-15] MEDS: furosemide 40mg/4ml inj IV SCH (08:00)
[2019-05-15] MEDS: lactobacillus rhamnosus 10,000 MMU CELLS/CAPSULE PO SCH ×2 (08:00→20:13)
[2019-05-15] MEDS: pantoprazole 40 MG vial IV SCH (08:00)
[2019-05-15] MEDS: ipratropium/albuterol 3ml nebule NEB PRN (09:38)
[2019-05-15] MEDS: acetaminophen 325mg tablet PO PRN (10:08)
[2019-05-15] MEDS: spironolactone 25 MG tablet PO SCH (13:37)
--- NOTE | 2019-05-15 14:31 | NUR ---
THIS AFTERNOON PATIENT AMBULATED 6 FEET WITH PHYSICAL THERAPY;TOLERATED ACTIVITY WELL . NOW UP IN CHAIR, CALL LIGHT IN REACH; NO C/O. Addendum: 05/15/19 at 1441 by Germaine Carmichael RN Amended: Links added.
--- NOTE | 2019-05-15 17:07 | NUR ---
Patient is pending discharge to [facility] when chest tube is out, per MD note patient has good appetite; documented as eating average 25-49% of pureed diet with thin liquids; patient now with fluid restriction per MD of 2 L a day, 1,000 ml for dietary. Last BM was today, patient put out copious amount of stool; patient appropriately refusing colace. Will continue to monitor. Recommendations: 1.Continue heart healthy diet, puree thin liquid per ST recs 2. Monitor need for oral nutrition supplement in view of increased protein needs r/t venous ulcer; patient is eating 25-49% of pureed meals. 3. Bowel care as needed 4. weight per rx Addendum: 05/15/19 at [address] Amended: Links added.
[2019-05-15 18:00] VITALS: BP 126/53
--- NOTE | 2019-05-15 18:00 | NUR ---
Patient in room MED 307. I have received report from Sherice celis and had the opportunity to ask questions and assume patient care.
[2019-05-15] MEDS: polyethylene glycol 3350 17gm powd pack PO SCH (20:19)
[2019-05-15 22:00] VITALS: BP 99/45
[2019-05-16 02:00] VITALS: BP 109/77
[2019-05-16 03:18] LABS: BASOPHILS % (AUTO) 0.4 % (0-1); EOSINOPHILS # (AUTO) 0.1 X10'3 (0-0.9); EOSINOPHILS % (AUTO) 1.1 % (0-6); HEMATOCRIT 34.7 % (42.0-52.0); HEMOGLOBIN 11.5 g/dl (14.0-17.9); LYMPHOCYTES # (AUTO) 0.7 X10'3 (1.1-4.8); LYMPHOCYTES % (AUTO) 6.9 % (21-51); MEAN CORPUSCULAR HEMOGLOBIN 32.5 PG (27.0-31.0); MEAN CORPUSCULAR HGB CONC 33.1 g/dL (33.0-36.5); MEAN CORPUSCULAR VOLUME 98.3 FL (78-98); MEAN PLATELET VOLUME 8.3 FL (7.4-10.4); MONOCYTES # (AUTO) 0.5 X10'3 (0-0.9); MONOCYTES % (AUTO) 5.1 % (2-12); NEUTROPHILS # (AUTO) 8.7 X10'3 (1.8-7.7); NEUTROPHILS % (AUTO) 86.5 % (42-75); PLATELET COUNT 275 X10'3 (140-440); RED BLOOD COUNT 3.53 X10'6 (4.70-6.10); RED CELL DISTRIBUTION WIDTH 17.3 % (11.5-14.5)
[2019-05-16 03:35] LABS: ALANINE AMINOTRANSFERASE 40 U/L (12-78); ALBUMIN 2.7 G/DL (3.4-5.0); ALBUMIN/GLOBULIN RATIO 0.7 (1.1-1.5); ALKALINE PHOSPHATASE 110 IU/L (46-116); ANION GAP 4 (8-16); ASPARTATE AMINO TRANSFERASE 16 U/L (10-37); BILIRUBIN,TOTAL 1.2 MG/DL (0.1-1.0); BLOOD UREA NITROGEN 24 MG/DL (7-18); BUN/CREATININE RATIO 24.5 (5.4-32.0); CALCIUM 9.3 MG/DL (8.5-10.1); CHLORIDE 106 MMOL/L (99-107); CREATININE 0.98 MG/DL (0.60-1.10); GLUCOSE 123 MG/DL (70-104); MAGNESIUM 2.1 MG/DL (1.5-2.4); PHOSPHORUS 3.4 MG/DL (2.3-4.5); POTASSIUM 3.9 MMOL/L (3.5-5.1); SODIUM 145 MMOL/L (135-145); TOTAL PROTEIN 6.4 G/DL (6.4-8.2); eGFR 74 ML/MIN
[2019-05-16] MEDS ORDERED: amiodarone 200mg tablet PO ONE (05:40)
--- NOTE | 2019-05-16 05:49 | NUR ---
CALLED DELBERT VILLAR FOR ARRYTHMIA CHANGES, SMALL BURSTS OF 4-5 BEAT RUNS OF VTACH, NEW SINCE 0500 AM, 10-12. ORDERED 400 MG AMIODARONE PO GIVE ONE TIME NOW. ORDERED, CALLED PHARMACY TO VERIFY CRYSTAL TO GIVE PATIENT
[2019-05-16 06:00] VITALS: BP 121/70
--- NOTE | 2019-05-16 06:46 | NUR ---
Patient in room MED 307. I have received report from SHAWN Harmon and had the opportunity to ask questions and assume patient care.
[2019-05-16] MEDS: albuterol 2.5 MG/3 ML nebule NEB SCH ×4 (06:56→21:14)
[2019-05-16] MEDS: budesonide 0.5mg/2ml UD nebule IH SCH ×2 (06:56→21:14)
[2019-05-16] MEDS: apixaban 5mg tablet PO SCH ×2 (07:36→20:22)
[2019-05-16] MEDS: amiodarone 200mg tablet PO SCH (07:36)
[2019-05-16] MEDS: lactobacillus rhamnosus 10,000 MMU CELLS/CAPSULE PO SCH ×2 (07:36→20:22)
[2019-05-16] MEDS: pantoprazole 40 MG vial IV SCH (07:37)
[2019-05-16] MEDS: docusate sodium 100mg/10ml UD cup PO SCH ×2 (07:37→20:00)
[2019-05-16] MEDS: furosemide 40mg/4ml inj IV SCH (07:37)
[2019-05-16] MEDS: cefepime 1GM in D5W 50mL 50 ML IV SCH (07:54)
[2019-05-16 11:00] VITALS: BP 119/57
[2019-05-16] MEDS: atenolol 25mg tablet PO SCH ×2 (11:43→20:23)
[2019-05-16 15:00] VITALS: BP 91/43
[2019-05-16] MEDS: spironolactone 25 MG tablet PO SCH (15:23)
--- NOTE | 2019-05-16 15:30 | NUR ---
Reassessment: Pt s/p f/u BSS 05/[address] recs to continue pureed food with thin liquids d/t difficulty chewing regular solids. Pt continues with average 25-50% PO intake likely not fully meeting nutrient needs at this time, now with a 2L fluid restriction. Noted that pt A/O x 3 and confused per physical assessment. Likely that decreased mentation could be impacting PO intake. [facility] 05/16. Will continue to follow closely. Recommendations: 1.Continue heart healthy diet, puree thin liquid per ST recs with 2L fluid restriction per MD 2. Monitor need for ONS 3. Bowel care as needed 4. weight per rx Addendum: 05/16/19 at [address] Amended: Links added.
[2019-05-16 18:00] VITALS: BP 94/47
--- NOTE | 2019-05-16 18:28 | NUR ---
Problems reprioritized. Patient report given, questions answered & plan of care reviewed with SHAWN Miranda.
--- NOTE | 2019-05-16 18:28 | NUR ---
Phoned results of CXR to ,re; large right pleural effusion .Dr. crawley requested that I notify Dr. Osullivan in AM.05/27
[2019-05-16] MEDS: nystatin 15 GM powder TP SCH (20:22)
[2019-05-16] MEDS: polyethylene glycol 3350 17gm powd pack PO SCH (20:52)
[2019-05-16] MEDS: ipratropium/albuterol 3ml nebule NEB SCH (21:14)
[2019-05-16 22:00] VITALS: BP 108/61
[2019-05-17 02:00] VITALS: BP 119/60
[2019-05-17 03:01] LABS: BASOPHILS # (AUTO) 0.1 X10'3 (0-0.2); EOSINOPHILS # (AUTO) 0.1 X10'3 (0-0.9); EOSINOPHILS % (AUTO) 1.3 % (0-6); HEMATOCRIT 34.2 % (42.0-52.0); HEMOGLOBIN 11.3 g/dl (14.0-17.9); LYMPHOCYTES # (AUTO) 0.9 X10'3 (1.1-4.8); LYMPHOCYTES % (AUTO) 10.4 % (21-51); MEAN CORPUSCULAR HEMOGLOBIN 32.4 PG (27.0-31.0); MEAN CORPUSCULAR HGB CONC 33.2 g/dL (33.0-36.5); MEAN CORPUSCULAR VOLUME 97.8 FL (78-98); MONOCYTES # (AUTO) 0.5 X10'3 (0-0.9); MONOCYTES % (AUTO) 6.1 % (2-12); NEUTROPHILS # (AUTO) 6.6 X10'3 (1.8-7.7); NEUTROPHILS % (AUTO) 81.2 % (42-75); PLATELET COUNT 284 X10'3 (140-440); RED CELL DISTRIBUTION WIDTH 17.6 % (11.5-14.5); WHITE BLOOD COUNT 8.2 X10'3 (4.5-11.0)
[2019-05-17 03:10] LABS: ALBUMIN 2.6 G/DL (3.4-5.0); ANION GAP 5 (8-16); BLOOD UREA NITROGEN 25 MG/DL (7-18); CALCIUM 9.1 MG/DL (8.5-10.1); CHLORIDE 106 MMOL/L (99-107); CREATININE 1.19 MG/DL (0.60-1.10); GLUCOSE 107 MG/DL (70-104); POTASSIUM 3.9 MMOL/L (3.5-5.1); SODIUM 144 MMOL/L (135-145); TOTAL CARBON DIOXIDE 33.1 MMOL/L (24-32); eGFR 59 ML/MIN
[2019-05-17 06:00] VITALS: BP 101/50
--- NOTE | 2019-05-17 06:12 | NUR ---
Patient in room MED 307. I have received report fromSHAWN Miranda and had the opportunity to ask questions and assume patient care.
--- NOTE | 2019-05-17 06:29 | NUR ---
Problems reprioritized. Patient report given, questions answered & plan of care reviewed with Gwen ESCOBAR.
[2019-05-17] MEDS: furosemide 40mg/4ml inj IV SCH (07:10)
[2019-05-17] MEDS: pantoprazole 40 MG vial IV SCH (07:10)
[2019-05-17] MEDS: albuterol 2.5 MG/3 ML nebule NEB SCH ×2 (07:44→11:00)
[2019-05-17] MEDS: budesonide 0.5mg/2ml UD nebule IH SCH ×2 (07:44→20:17)
[2019-05-17] MEDS: cefepime 1GM in D5W 50mL 50 ML IV SCH (08:00)
[2019-05-17] MEDS: ipratropium/albuterol 3ml nebule NEB SCH ×3 (08:00→20:17)
[2019-05-17] MEDS: atenolol 25mg tablet PO SCH ×2 (08:00→20:00)
[2019-05-17] MEDS: lactobacillus rhamnosus 10,000 MMU CELLS/CAPSULE PO SCH ×2 (08:00→20:00)
[2019-05-17] MEDS: docusate sodium 100mg/10ml UD cup PO SCH ×2 (08:00→20:00)
[2019-05-17] MEDS: nystatin 15 GM powder TP SCH ×2 (08:00→13:00)
[2019-05-17] MEDS: amiodarone 200mg tablet PO SCH (08:00)
[2019-05-17] MEDS: apixaban 5mg tablet PO SCH ×2 (08:00→20:00)
[2019-05-17 11:00] VITALS: BP 105/57
[2019-05-17] MEDS: spironolactone 25 MG tablet PO SCH (12:30)
--- NOTE | 2019-05-17 13:00 | NUR ---
Pt's Daughter and at bedside,Dr. Osullivan in to answer all questions, verbalizes understanding,daughter stating"How are we going to feed him?" despite explanations of npo status after failing swallow study with speech therapy. Dr. Osullivan ordered corpak with dietary consult for feedings
[2019-05-17 15:00] VITALS: BP 106/49
--- NOTE | 2019-05-17 17:00 | NUR ---
Thoroughly explained purpose and procedure of inserting corpack,pt. verbalized understanding. pt became combative during insertion,shaking head and swinging arms ,attempting to pull tube out ,corpak ended up coiled in back of mouth .Pt refused any further attempts,stating" I'd rather not eat than have that" Dr. Osullivan notified,stating he would would contact IR to insert tomarrow. 1730,received a call from ,who stated he would be coming up to evaluate pt for possible peg tube.MD aware last dose of Eliquis was 11/12 am,with orders in this am to hold any further blood thinners for pending thorocentesis
[2019-05-17 18:00] VITALS: BP 112/62
--- NOTE | 2019-05-17 18:04 | NUR ---
TF consult: Pt s/p BSS this morning with [facility] NPO d/t pt coughing after swallowing. Corpak still pending placement per RN. Per order MD request TF rate of 30 mL/hr. Recommendations below for if TF to be advanced to goal rate to meet 100% of patient's estimated nutrient needs. [facility] 05/16. Will continue to follow. Recommendations: 1. Once Corpak placed and confirmed in appropriate location, continuous TF using Jevity 1.2 with goal rate of 30 mL/hr per MD to provide: total volume of 720 mL/day, 864 kcal, 40 g protein, and 581 mL water; meeting 36% EEN and 42% EPN 2. If to advance TF to meet nutrient needs, recommend goal rate of 90 mL/hr to provide: total volume of 2160 mL/day, 120 g protein, and 1743 mL water; to meet 100% of patient's estimated nutrient needs 3. Additional water flush per MD 4. Prealbumin q /; daily weights 5. Diet advancement per [facility] if pass BSS 6. Bowel care Addendum: 05/17/19 at [address] Amended: Links added.
--- NOTE | 2019-05-17 18:40 | NUR ---
Problems reprioritized. Patient report given, questions answered & plan of care reviewed with SHAWN NEWBY .
--- NOTE | 2019-05-17 19:01 | NUR ---
Patient in room MED 307. I have received report from Gwen ESCOBAR and had the opportunity to ask questions and assume patient care.
[2019-05-17] MEDS: polyethylene glycol 3350 17gm powd pack PO SCH (21:00)
[2019-05-17 22:00] VITALS: BP 138/62
[2019-05-18] VITALS (17 sets, daily range): BP systolic 82–139; BP diastolic 40–98
[2019-05-18] MEDS: nystatin 15 GM powder TP SCH ×4 (02:43→21:29)
[2019-05-18] MEDS: ondansetron/PF 4mg/2ml inj IV PRN ×2 (03:53→19:46)
--- NOTE | 2019-05-18 06:30 | NUR ---
Patient in room MED 307. I have received report from Ruben ESCOBAR and had the opportunity to ask questions and assume patient care.
--- NOTE | 2019-05-18 06:31 | NUR ---
Problems reprioritized. Patient report given, questions answered & plan of care reviewed with Edith ESCOBAR.
[2019-05-18] MEDS ORDERED: insulin Lispro (HumaLOG) vial - multi-dose SQ SCH (07:45)
[2019-05-18] MEDS ORDERED: dextrose ORAL solution 15 GM/59 ML bottle PO PRN ×2 (07:45)
[2019-05-18] MEDS ORDERED: MESSAGE TO PHARMACY PO ONE (07:45)
[2019-05-18] MEDS ORDERED: dextrose 50%-water 50ml dispensing syringe IV PRN ×2 (07:45)
[2019-05-18] MEDS ORDERED: glucagon, human recombinant 1mg kit SUBCUT PRN (07:45)
[2019-05-18] MEDS: cefepime 1GM in D5W 50mL 50 ML IV SCH (07:59)
[2019-05-18] MEDS: furosemide 40mg/4ml inj IV SCH (07:59)
[2019-05-18] MEDS: lactobacillus rhamnosus 10,000 MMU CELLS/CAPSULE PO SCH ×2 (08:00→20:00)
[2019-05-18] MEDS: pantoprazole 40 MG vial IV SCH (08:00)
[2019-05-18] MEDS: apixaban 5mg tablet PO SCH ×2 (08:00→20:00)
[2019-05-18] MEDS: docusate sodium 100mg/10ml UD cup PO SCH ×2 (08:00→20:00)
[2019-05-18] MEDS: atenolol 25mg tablet PO SCH ×2 (08:00→20:00)
[2019-05-18] MEDS: amiodarone 200mg tablet PO SCH (08:00)
[2019-05-18] MEDS: ipratropium/albuterol 3ml nebule NEB SCH ×3 (08:48→21:43)
[2019-05-18] MEDS: budesonide 0.5mg/2ml UD nebule IH SCH ×2 (08:48→21:43)
[2019-05-18 08:52] LABS: PARTIAL THROMBOPLASTIN TIME 24 SECONDS (22-32)
--- NOTE | 2019-05-18 11:00 | NUR ---
Physicians [employer] Sales Representative at bedside to perform Right thoracentesis at this time.
[2019-05-18] MEDS: spironolactone 25 MG tablet PO SCH (12:30)
--- NOTE | 2019-05-18 12:31 | NUR ---
Reassessment: Pt s/p f/u BSS today with ST recs NPO with alternative nutrition d/t pt coughing after swallowing with both food and liquids. Pt currently documented as NPO pending procedure. Per MD notes a Corpak was attempted to be placed but it was not possible, pt possibly to get a PEG pending EGD and further discussion with family. Per RN notes pt to have a thoracentesis. Will f/u tomorrow to make recommendations that are in line with patient's nutritional plan of care. Recommendations: 1. Once Corpak placed and confirmed in appropriate location, or if pt to receive TF via PEG and okay to use per MD, continuous TF using Jevity 1.2 with goal rate of 30 mL/hr per MD to provide: total volume of 720 mL/day, 864 kcal, 40 g protein, and 581 mL water; meeting 36% EEN and 42% EPN 2. If to advance TF to meet nutrient needs, recommend goal rate of 90 mL/hr to provide: total volume of 2160 mL/day, 120 g protein, and 1743 mL water; to meet 100% of patient's estimated nutrient needs 3. Additional water flush per MD 4. Prealbumin q /; daily weights 5. PO diet advancement per ST recs if passes BSS 6. Bowel care Addendum: 05/18/19 at [address] Amended: Links added.
[2019-05-18] MEDS: sodium chloride inj. 154 MEQ in Dextrose 10%-water IV solution 961.5 ML IV SCH ×2 (13:18→22:30)
--- NOTE | 2019-05-18 16:15 | NUR ---
Patient's HR elevated over 100 bpm. Received Cardizem drip orders for 10 mg/hr for rate control.
[2019-05-18] MEDS: diltiazem-NS 100mg/100ml 100 ML IV SCH (16:59)
--- NOTE | 2019-05-18 17:15 | NUR ---
Cardizem drip initiated into PIV in right upper arm. Vital signs stable. Patient tolerating well. Will continue to monitor.
--- NOTE | 2019-05-18 18:15 | NUR ---
Problems reprioritized. Patient report given, questions answered & plan of care reviewed with Ruben RN.
--- NOTE | 2019-05-18 19:05 | NUR ---
Patient in room MED 307. I have received report from Edith Johnson and had the opportunity to ask questions and assume patient care.
--- NOTE | 2019-05-18 19:30 | NUR ---
Spoke with Practitioner July about pt's Bp being 82/40 after cardizem gtt change. Received order to discontinue cardizem. And to notify her if pt's HR becomes elevated.
[2019-05-18] MEDS ORDERED: cefepime inj. 1 GM in normal saline 100ml IV soln 100 ML IV SCH (20:48)
[2019-05-18] MEDS: polyethylene glycol 3350 17gm powd pack PO SCH (20:53)
[2019-05-18] MEDS: insulin glargine (Lantus) pen - multi-dose SQ SCH (21:00)
--- NOTE | 2019-05-18 23:48 | NUR ---
Spoke with Practitioner July about pt's Bp's being consistently in the 90's. Received order to adjust rate to 5mg/hr. Addendum: 05/18/19 at 2351 by Ruben Cormier RN Called at 1900
[2019-05-19] VITALS (22 sets, daily range): BP systolic 105–145; BP diastolic 49–94
[2019-05-19] MEDS: diltiazem-NS 100mg/100ml 100 ML IV SCH ×2 (02:20→12:20)
--- NOTE | 2019-05-19 06:30 | NUR ---
Problems reprioritized. Patient report given, questions answered & plan of care reviewed with Twila ESCOBAR.
--- NOTE | 2019-05-19 07:00 | NUR ---
Patient in room MED 307. I have received report from Ruben ESCOBAR and had the opportunity to ask questions and assume patient care.
[2019-05-19] MEDS: pantoprazole 40 MG vial IV SCH (07:44)
[2019-05-19] MEDS: nystatin 15 GM powder TP SCH ×3 (07:53→22:34)
[2019-05-19] MEDS: apixaban 5mg tablet PO SCH (08:00)
[2019-05-19] MEDS: amiodarone 200mg tablet PO SCH (08:00)
[2019-05-19] MEDS: ipratropium/albuterol 3ml nebule NEB SCH ×3 (08:00→20:43)
[2019-05-19] MEDS: atenolol 25mg tablet PO SCH (08:00)
[2019-05-19] MEDS: docusate sodium 100mg/10ml UD cup PO SCH (08:00)
[2019-05-19] MEDS: furosemide 40mg/4ml inj IV SCH (08:00)
[2019-05-19] MEDS: budesonide 0.5mg/2ml UD nebule IH SCH ×2 (08:00→20:43)
[2019-05-19] MEDS: lactobacillus rhamnosus 10,000 MMU CELLS/CAPSULE PO SCH (08:00)
--- NOTE | 2019-05-19 09:45 | NUR ---
Pt chest tube water sealed. IV saline locked and he was transferred to [facility] and taken to GI Lab with GI rn assessment
[2019-05-19] MEDS ORDERED: fentaNYL/PF 50MCG/1 ML 2ML syringe ONE (10:07)
[2019-05-19] MEDS ORDERED: MIDAZolam 5mg/5ml vial ONE (10:07)
[2019-05-19] MEDS ORDERED: LIDOcaine Viscous 15ml cup ONE (10:08)
--- NOTE | 2019-05-19 12:59 | NUR ---
I have reviewed and agree with all medications administered and interventions performed by PRINTER ASSISTANT Student Jonel Starks.
--- NOTE | 2019-05-19 13:00 | NUR ---
Pt returned from GI Lab PEG in place. Site free from s/s complications thus far. Vital signs stable. Pt alert and oriented and denies any needs at this time.
[2019-05-19] MEDS: sodium chloride inj. 154 MEQ in Dextrose 10%-water IV solution 961.5 ML IV SCH (13:03)
[2019-05-19] MEDS: spironolactone 25 MG tablet PO SCH (13:04)
--- NOTE | 2019-05-19 13:05 | NUR ---
TF consult: Pt s/p PEG placement. Per MD notes PEG not to be used until four hours after placement if pt doing well. Per RN tube feeding to begin around 1500. TF recommendations below. Will continue to follow. Recommendations: 1. Once okay to use PEG per MD, recommend continuous TF using Jevity 1.2 with goal rate of 90 mL/hr to provide: total volume of 2160 mL/day, 120 g protein, and 1743 mL water; to meet 100% of patient's estimated nutrient needs 2. Additional water flush per MD 3. Prealbumin q /; daily weights 4. PO diet advancement per recs if passes BSS 5. Bowel care Addendum: 05/19/19 at [address] Amended: Links added.
--- NOTE | 2019-05-19 13:20 | NUR ---
INFORMED SHAY THAT PATIENT POST PEG TUBE PLACEMENT HR AFIB 115-130. NEW ORDER: AMIO GTT PER PROTOCOL, DO NOT GIVE LOADING DOSE. WILL CONTINUE TO MONITOR
[2019-05-19] MEDS: amiodarone/D5 360MG/200ML BAG 200 ML IV SCH ×2 (13:34→19:58)
[2019-05-19] MEDS ORDERED: acetaminophen 325mg tablet PEG PRN ×2 (13:36→13:37)
[2019-05-19] MEDS ORDERED: amiodarone 200mg tablet PEG SCH (13:37)
[2019-05-19] MEDS ORDERED: apixaban 5mg tablet PEG SCH (13:37)
[2019-05-19] MEDS ORDERED: atenolol 25mg tablet PEG SCH (13:38)
[2019-05-19] MEDS ORDERED: dextrose ORAL solution 15 GM/59 ML bottle PEG PRN ×2 (13:38→13:40)
[2019-05-19] MEDS ORDERED: insulin regular, human vial - multi-dose SQ SCH (13:39)
[2019-05-19] MEDS ORDERED: docusate sodium 100mg/10ml UD cup PEG SCH (13:39)
[2019-05-19] MEDS ORDERED: lactobacillus rhamnosus 10,000 MMU CELLS/CAPSULE PEG SCH (13:40)
[2019-05-19] MEDS ORDERED: potassium Cl 20 mEq SR tablet PEG PRN ×2 (13:41→13:42)
[2019-05-19] MEDS ORDERED: magnesium hydroxide 30ml (MOM) UD suspension PEG PRN (13:41)
[2019-05-19] MEDS ORDERED: polyethylene glycol 3350 17gm powd pack PEG SCH (13:41)
[2019-05-19] MEDS ORDERED: spironolactone 25 MG tablet PEG SCH (13:42)
[2019-05-19] MEDS: insulin glargine (Lantus) pen - multi-dose SQ SCH (21:00)
--- NOTE | 2019-05-19 21:21 | NUR ---
Treatment cut short due to falling saturations and falling vitals. Increased heart rate was noted as well. Addendum: 05/19/19 at 2123 [address] Nav[address] RT Amended: Links added.
--- NOTE | 2019-05-19 21:42 | NUR ---
[facility] LIDAR SCIENTIST notified. pt desaturation SOB at rest. currently 10L high flow 90, respiration 38BPM, pt needs constant reminders regarding keeping NC in nose. DIETITIAN at bedside for constant support with NC and reminders. chest tube out put 150 ml serosanguineous fluid.
[2019-05-19] MEDS ORDERED: furosemide 40mg/4ml inj IV ONE ×2 (22:00→23:00)
[2019-05-19 22:30] LABS: ABG BASE EXCESS 3.7 mmol/L (-2.0-3.0); ABG OXYGEN SATURATION 91.4 % (95-98); ABG PCO2 (T) 73.2 mmHg (35.0-45.0); ALLEN'S TEST Positive; FCOHb 1.1 % (0.5-1.5); FLOW 10 L/min; FMetHb 0.2 % (0.3-1.12); FO2Hb 90.2 % (94-100); PATIENT TEMPERATURE 36.5; TOTAL HEMOGLOBIN 13.5 G/dl (14.0-17.9)
[2019-05-19] MEDS ORDERED: cefepime 1GM in D5W 50mL 50 ML IV SCH (23:03)
[2019-05-19 23:37] LABS: BASOPHILS % (AUTO) 0.4 % (0-1); EOSINOPHILS % (AUTO) 0.2 % (0-6); HEMATOCRIT 41.1 % (42.0-52.0); HEMOGLOBIN 13.1 g/dl (14.0-17.9); LYMPHOCYTES # (AUTO) 0.4 X10'3 (1.1-4.8); LYMPHOCYTES % (AUTO) 3.7 % (21-51); MEAN CORPUSCULAR HGB CONC 31.8 g/dL (33.0-36.5); MEAN CORPUSCULAR VOLUME 100.6 FL (78-98); MEAN PLATELET VOLUME 9.6 FL (7.4-10.4); NEUTROPHILS # (AUTO) 9.5 X10'3 (1.8-7.7); NEUTROPHILS % (AUTO) 86.7 % (42-75); PLATELET COUNT 297 X10'3 (140-440); RED BLOOD COUNT 4.09 X10'6 (4.70-6.10); RED CELL DISTRIBUTION WIDTH 17.8 % (11.5-14.5); WHITE BLOOD COUNT 10.9 X10'3 (4.5-11.0)
[2019-05-19 23:51] LABS: ALANINE AMINOTRANSFERASE 27 U/L (12-78); ALBUMIN 2.7 G/DL (3.4-5.0); ALBUMIN/GLOBULIN RATIO 0.7 (1.1-1.5); ALKALINE PHOSPHATASE 125 IU/L (46-116); ANION GAP 7 (8-16); ASPARTATE AMINO TRANSFERASE 19 U/L (10-37); BILIRUBIN,TOTAL 0.8 MG/DL (0.1-1.0); BLOOD UREA NITROGEN 23 MG/DL (7-18); BUN/CREATININE RATIO 15.2 (5.4-32.0); CALCIUM 8.9 MG/DL (8.5-10.1); CHLORIDE 107 MMOL/L (99-107); CREATININE 1.51 MG/DL (0.60-1.10); GLUCOSE 195 MG/DL (70-104); SODIUM 145 MMOL/L (135-145); TOTAL CARBON DIOXIDE 31.2 MMOL/L (24-32); TOTAL PROTEIN 6.8 G/DL (6.4-8.2); eGFR 45 ML/MIN
[2019-05-19 23:58] LABS: MAGNESIUM 1.7 MG/DL (1.5-2.4); PHOSPHORUS 4.6 MG/DL (2.3-4.5)
[2019-05-20] MEDS: amiodarone/D5 360MG/200ML BAG 200 ML IV SCH ×2 (01:29→07:33)
[2019-05-20 02:00] VITALS: BP 109/54
[2019-05-20 05:11] LABS: ABG BASE EXCESS 7.1 mmol/L (-2.0-3.0); ABG HCO3 34.5 mmol/L (22.0-26.0); ABG OXYGEN SATURATION 85.9 % (95-98); ABG PCO2 (T) 63.3 mmHg (35.0-45.0); ABG PH (T) 7.355 (7.350-7.450); ABG PO2 (T) 53.9 mmHg (83-108); ALLEN'S TEST Positive; FCOHb 0.8 % (0.5-1.5); FMetHb 0.3 % (0.3-1.12); MINUTE VOLUME 15 L/min; PATIENT TEMPERATURE 37.1; RESPIRATORY RATE 16 b/min; RESPIRATORY RATE (OBSERVED) 37 b/min; TIDAL VOLUME 393 mL; TOTAL HEMOGLOBIN 12.4 G/dl (14.0-17.9)
[2019-05-20 05:25] LABS: BASOPHILS % (AUTO) 0.1 % (0-1); EOSINOPHILS % (AUTO) 0 % (0-6); HEMATOCRIT 35.9 % (42.0-52.0); HEMOGLOBIN 11.6 g/dl (14.0-17.9); LYMPHOCYTES # (AUTO) 0.5 X10'3 (1.1-4.8); LYMPHOCYTES % (AUTO) 5.1 % (21-51); MEAN CORPUSCULAR HEMOGLOBIN 32.1 PG (27.0-31.0); MEAN CORPUSCULAR HGB CONC 32.3 g/dL (33.0-36.5); MEAN CORPUSCULAR VOLUME 99.4 FL (78-98); MEAN PLATELET VOLUME 8.1 FL (7.4-10.4); MONOCYTES # (AUTO) 0.9 X10'3 (0-0.9); MONOCYTES % (AUTO) 8.9 % (2-12); NEUTROPHILS # (AUTO) 8.5 X10'3 (1.8-7.7); NEUTROPHILS % (AUTO) 85.9 % (42-75); PLATELET COUNT 258 X10'3 (140-440); RED BLOOD COUNT 3.62 X10'6 (4.70-6.10); RED CELL DISTRIBUTION WIDTH 16.6 % (11.5-14.5); WHITE BLOOD COUNT 9.9 X10'3 (4.5-11.0)
[2019-05-20 05:57] LABS: ANION GAP 5 (8-16); BLOOD UREA NITROGEN 25 MG/DL (7-18); BUN/CREATININE RATIO 15.6 (5.4-32.0); CHLORIDE 108 MMOL/L (99-107); GLUCOSE 201 MG/DL (70-104); POTASSIUM 3.7 MMOL/L (3.5-5.1); SODIUM 147 MMOL/L (135-145); TOTAL CARBON DIOXIDE 33.8 MMOL/L (24-32)
[2019-05-20 05:58] LABS: ALANINE AMINOTRANSFERASE 26 U/L (12-78); ALBUMIN 2.5 G/DL (3.4-5.0); ALBUMIN/GLOBULIN RATIO 0.6 (1.1-1.5); ALKALINE PHOSPHATASE 115 IU/L (46-116); ASPARTATE AMINO TRANSFERASE 18 U/L (10-37); BILIRUBIN,TOTAL 0.7 MG/DL (0.1-1.0); CALCIUM 8.8 MG/DL (8.5-10.1); MAGNESIUM 1.7 MG/DL (1.5-2.4); PHOSPHORUS 4.4 MG/DL (2.3-4.5); TOTAL PROTEIN 6.4 G/DL (6.4-8.2); eGFR 42 ML/MIN
--- NOTE | 2019-05-20 06:00 | NUR ---
Patient in room MED 307. I have received report from Mary ESCOBAR and had the opportunity to ask questions and assume patient care.
[2019-05-20 07:00] VITALS: BP 106/55
[2019-05-20] MEDS: nystatin 15 GM powder TP SCH ×2 (08:00→13:36)
[2019-05-20] MEDS: furosemide 40mg/4ml inj IV SCH (08:00)
[2019-05-20] MEDS: ipratropium/albuterol 3ml nebule NEB SCH ×2 (08:23→14:35)
[2019-05-20] MEDS: budesonide 0.5mg/2ml UD nebule IH SCH (08:23)
[2019-05-20] MEDS ORDERED: furosemide 10 MG/1 ML 10ml inj IV SCH (08:50)
[2019-05-20] MEDS ORDERED: spironolactone 25 MG tablet PEG SCH (08:50)
[2019-05-20] MEDS ORDERED: morphine 2 MG/ML inj. syringe IV ONE (09:15)
[2019-05-20] MEDS ORDERED: morphine 10mg/0.5ml (conc. morphine) oral syringe PO PRN (09:40)
[2019-05-20] MEDS ORDERED: spironolactone 25 MG tablet PO SCH (09:40)
[2019-05-20] MEDS ORDERED: LORazepam 2 mg/ml vial IV PRN (09:40)
[2019-05-20] MEDS ORDERED: OXYC40TA PO (10:48)
[2019-05-20] MEDS ORDERED: OXYC20TA71 PO (10:48)
[2019-05-20] MEDS ORDERED: LORA-269 PO (10:49)
[2019-05-20] MEDS ORDERED: proMETHazine 25mg rectal suppository RC PRN (10:50)
[2019-05-20] MEDS ORDERED: proMETHazine 25mg tablet PO PRN (10:50)
[2019-05-20] MEDS ORDERED: scopolamine 1.5mg patch.TD72 TD SCH (10:50)
--- NOTE | 2019-05-20 14:30 | NUR ---
PATIENT ASKED NURSING TO HELP TRANSFER HIM TO RECLINER. PT WAS CALLED TO HELP TRANSFER PATIENT, STEADY LIFT USED. PATIENT SAT IN RECLINER NO MORE THAN 10 SEC WHEN HE STARTED TO TURN PURPLE AND C/O NOT BEING ABLE TO BREATH, DESAT TO 60s. PATIENT IMMEDIATELY MOVED BACK TO BED, COLOR IMPROVED AND O2 SAT IMPROVED TO 95%.
--- NOTE | 2019-05-20 15:00 | NUR ---
FAMILY RUNNING OUT OF [facility] SCREAMING AT STAFF FOR HELP "HE'S DYING HE'S DYING HELP HELP HELP HIM" EXPLAINED TO FAMILY THIS WAS EXPECTED, WE WILL HONOR HIS WISHES AND KEEP HIM COMFORTABLE AND EASE HIS PAIN. INFORMED FAMILY THAT NURSE WILL COME IN TO GIVE SOME MEDICATION TO EASE HIS PAIN AND DISCOMFORT IF ANY Addendum: 05/20/19 at 1521 by Anuja Crane RN PATIENT RHYTHM NOTED TO BE VENTRICULAR AND PATIENT IS UNRESPONSIVE CALLED DR. DAY TO INFORM THAT PATIENT WAS ACTIVELY PASSING. SHAY INFORMED TO CALL DEBBIE IZQUIERDO WAS CALLED AND INFORMED OF PATIENT ACTIVELY PASSING. NEW ORDER RECEIVED FOR NURSING TO PRONOUCE . NO NEED TO NOTIFY HER AGAIN SHE WILL COMPLETE DISCHARGE SUMMARY. PATIENT AND FAMILY PROVIDED PRIVACY
--- NOTE | 2019-05-20 15:34 | NUR ---
RN IS TO DOCUMENT YES TO ALL APPLICABLE AREAS Pronouncement of : 1529 1. Time Physician Notified: 1534 2. Date of : 05/20/19 3. Time of : 1529 4. DNR/Withdraw life support documented: Y 5. Monitor strip has been placed on chart: Y 6. Assessment process is of one-minute duration and includes following criteria: a) Patient is unresponsive to all stimuli: Y b) Pupils fixed and non-reactive: Y c) Auscultation of precordium reveals absence of heart tones: Y d) Auscultation of lungs reveals absence of breath sounds: Y e) Absence of blood pressure / all vital signs: Y f) QRS complexes are not present on monitor / EKG strip: Y g) Pacer spikes without capture: NA 4. Comments: 2 RN PRONOUCEMENT OF BY AHSAN LEDESMA, RN AND KELSEY BREWER, RN ALL BELONGINGS GIVEN TO FAMILY - DENTURES
--- NOTE | 2019-05-20 15:45 | NUR ---
donor network called, patient is candidate
--- NOTE | 2019-05-20 16:45 | NUR ---
rupal oates called to rock picker body, informed will be there shortly
--- NOTE | 2019-05-20 17:25 | NUR ---
rupal at bedside. body removed from hospital
[2019-05-21] MEDS ORDERED: furosemide 20MG tablet PO SCH (08:00)
== END 2019-05-20 17:26 | disposition expired | DRG 207 ==
LOC: ICU 2S 15:35 → MED 3N 05-12 15:05
PROVIDERS: ADMIT Internal Medicine Critical Care Medicine
PROC: 5A1955Z Respiratory Ventilation, Greater than 96 Consecutive Hours (ICD-10-PCS; principal; 2019-05-02)
PROC: 0BH17EZ Insertion of Endotracheal Airway into Trachea, Via Natural or Artificial Opening (ICD-10-PCS; 2019-05-02)
PROC: 4A10X4Z Monitoring of Central Nervous Electrical Activity, External Approach (ICD-10-PCS; 2019-05-05)
PROC: 0W993ZZ Drainage of Right Pleural Cavity, Percutaneous Approach (ICD-10-PCS; 2019-05-18)
PROC: 0DH63UZ Insertion of Feeding Device into Stomach, Percutaneous Approach (ICD-10-PCS; 2019-05-19)
PROC: 5A09357 Assistance with Respiratory Ventilation, Less than 24 Consecutive Hours, Continuous Positive Airway Pressure (ICD-10-PCS; 2019-05-20)
DX: J96.02 Acute respiratory failure with hypercapnia (principal); J18.9 Pneumonia, unspecified organism; N17.9 Acute kidney failure, unspecified; J91.8 Pleural effusion in other conditions classified elsewhere; R65.10 Systemic inflammatory response syndrome (SIRS) of non-infectious origin without acute organ dysfunction; I42.9 Cardiomyopathy, unspecified; I46.9 Cardiac arrest, cause unspecified; J96.01 Acute respiratory failure with hypoxia; I49.01 Ventricular fibrillation; N18.3 Chronic kidney disease, stage 3 (moderate); E11.22 Type 2 diabetes mellitus with diabetic chronic kidney disease; R13.12 Dysphagia, oropharyngeal phase; I48.91 Unspecified atrial fibrillation; J44.9 Chronic obstructive pulmonary disease, unspecified; I50.9 Heart failure, unspecified; Z86.73 Personal history of transient ischemic attack (TIA), and cerebral infarction without residual deficits; E87.70 Fluid overload, unspecified; I95.9 Hypotension, unspecified; Z87.891 Personal history of nicotine dependence; Z88.5 Allergy status to narcotic agent
CPT/HCPCS: 32555; 36415; 36600; 43246; 71045; 76937; 80048; 80053; 81001; 82140; 82150; 82550; 82553; 82803; 82948; 83036; 83605; 83690; 83721; 83735; 83880; 84100; 84132; 84134; 84145; 84443; 84484; 85018; 85025; 85027; 85610; 85730; 86022; 86885; 86900; 86901; 87040; 87070; 87081; 87088; 92508; 92616; 93005; 93306; 93970; 94002; 94003; 94640; 94667; 94668; 94760; 95816; 97110; 97112; 97116; 97161; 97530; 97535; 99152; 99153; A4620; B4087; C9113; G0378; GO378; J0282; J0692; J0780; J1644; J1650; J1815; J1940; J1953; J1956; J2060; J2250; J2270; J2405; J3010; J3475; J3480; J3490; J7030; J7040; J7060; J7070; J7131; J7626; P9047; Q2037